=== PATIENT | male | born 1955 | race Caucasian/White ===

== ENCOUNTER 2018-07-02 10:08 | Emergency (ER) | payer OTHER ==
--- NOTE | 2018-07-02 11:31 | RADIOLOGY REPORT (SQ) ---
EXAM DESCRIPTION: ACUTE ABDOMEN SERIES COMPLETED DATE/TIME: 07/02/2018 11:00 am REASON FOR STUDY: Abdominal pain and inguinal hernia COMPARISON: None. NUMBER OF VIEWS: Three views. TECHNIQUE: Frontal chest, supine abdomen and upright/decubitus abdomen radiographic images acquired. LIMITATIONS: None. FINDINGS: CHEST: Lungs clear of infiltrates. FREE AIR: None. No abnormal gas collections. BOWEL GAS PATTERN: There are couple prominent air filled bowel loops in the left upper quadrant which appear to be colonic. Otherwise a nonspecific intestinal bowel gas pattern is seen. A moderate yasmin unt of fecal material is identified in the right colon and transverse colon to the level of the splen ic flexure. CALCIFICATIONS: No suspicious calcifications. HARDWARE: None in the abdomen. SOFT TISSUES: No gross mass or suggestion of organomegaly. BONES: A mi lumbar scoliosis convex to the right is identified with associated degenerative changes. OTHER: No other significant finding. IMPRESSION: NO RADIOGRAPHIC EVIDENCE FOR ACUTE ABDOMINAL DISEASE. TECHNICAL DOCUMENTATION: JOB ID: [id number] zerved- All Rights Reserved Reading location - IP/workstation name: [email or web address]
[2018-07-02 11:43] LABS: ABSOLUTE BASOPHILS # (AUTO) 0.1 10^3/uL (0.0-0.2); ABSOLUTE EOSINOPHILS # (AUTO) 0.1 10^3/uL (0.0-0.6); ABSOLUTE LYMPHOCYTES (AUTO) 1.1 10^3/uL (0.5-4.7); ABSOLUTE MONOCYTES (AUTO) 0.4 10^3/uL (0.1-1.4); ABSOLUTE NEUT (AUTO) 4.1 10^3/uL (1.7-8.2); BASOPHILS % (AUTO) 1.3 % (0-2); EOSINOPHILS % (AUTO) 1.2 % (0-6); HEMATOCRIT 44.8 % (37.9-51.0); HEMOGLOBIN 15.6 g/dL (13.5-17.0); LYMPHOCYTES % (AUTO) 18.9 % (13-45); MEAN CORPUSCULAR HEMOGLOBIN 30.3 pg (27.0-33.4); MEAN CORPUSCULAR HGB CONC 34.8 g/dL (32.0-36.0); MEAN CORPUSCULAR VOLUME 87 fl (80-97); MONOCYTES % (AUTO) 7.2 % (3-13); PLATELET COUNT 235 10^3/uL (150-450); RED BLOOD COUNT 5.15 10^6/uL (4.35-5.55); RED CELL DISTRIBUTION WIDTH 13.6 % (11.5-14.0); SEGMENTED NEUTROPHILS % (AUTO) 71.4 % (42-78); TOTAL CELLS COUNTED % (AUTO) 100 %; WHITE BLOOD COUNT 5.7 10^3/uL (4.0-10.5)
[2018-07-02 11:51] LABS: APPEARANCE,URINE SLIGHTLY-CLOUDY; BILIRUBIN,URINE NEGATIVE (NEGATIVE); COLOR,URINE YELLOW; GLUCOSE, URINE 50 mg/dL (NEGATIVE); KETONES,URINE TRACE mg/dL (NEGATIVE); LEUKOCYTE ESTERASE,URINE NEGATIVE (NEGATIVE); NITRITE,URINE NEGATIVE (NEGATIVE); PROTEIN,URINE 100 mg/dL (NEGATIVE); URINE SPECIFIC GRAVITY 1.017
[2018-07-02 12:04] LABS: ALANINE AMINOTRANSFERASE 46 U/L (21-72); ALBUMIN 4.1 g/dL (3.5-5.0); ALKALINE PHOSPHATASE 89 U/L (38-126); ANION GAP 11 (5-19); ASPARTATE AMINO TRANSFERASE 30 U/L (17-59); BILIRUBIN,DIRECT 0.3 mg/dL (0.0-0.4); BILIRUBIN,TOTAL 0.8 mg/dL (0.2-1.3); BLOOD UREA NITROGEN 31 mg/dL (7-20); CALCIUM 9.5 mg/dL (8.4-10.2); CARBON DIOXIDE 28 mmol/L (22-30); CHLORIDE 103 mmol/L (98-107); GLUCOSE 248 mg/dL (75-110); POTASSIUM 4.7 mmol/L (3.6-5.0); SODIUM 141.8 mmol/L (137-145); TOTAL PROTEIN 6.9 g/dL (6.3-8.2)
--- NOTE | 2018-07-02 12:45 | ER Document Report ---
ED GI/ - General TRAVEL OUTSIDE OF THE [place] IN LAST 30 DAYS: No <OLIVER PINEDA - Last Filed: 07/02/18 12:42> <DEJALILIANA - Last Filed: 07/02/18 13:17> - General Chief Complaint: Groin Pain Stated Complaint: GROIN PAIN Time Seen by Provider: 07/02/18 10:28 Notes: Chief complaint: abdominal pain: Ongoing pain History of complain:( obtained from----patient) 62 years old male presents today with right groin, inguinal hernia which is giving rise to on and off pain. Not associated with any nausea vomiting fever chills or other constitutional symptoms. He has been having this for a while. Denies any dysuria frequency urgency. Onset: As above Duration: Gradual Severity: Mild to moderate Quality: Sharp Context: Hernia Exacerbating factor and relieving factors: Lifting REVIEW OF SYSTEMS: CONSTITUTIONAL : Denies fever, chills, or sweats. Denies recent illness. EENT: Denies eye, ear, throat, or mouth pain or symptoms. Denies nasal or sinus congestion or discharge. Denies throat, tongue, or mouth swelling or difficulty swallowing. CARDIOVASCULAR: Denies chest pain. Denies palpitations or racing or irregular heart beat. Denies ankle edema. RESPIRATORY: Denies cough, cold, or chest congestion. Denies shortness of breath, difficulty breathing, or wheezing. GASTROINTESTINAL: Denies distention. Denies nausea, vomiting, or diarrhea. Denies blood in vomitus, stools, or per rectum. Denies black, tarry stools. Denies constipation. GENITOURINARY: Denies difficulty urinating, painful urination, burning, frequency, blood in urine, or discharge. FEMALE GENITOURINARY: Denies vaginal bleeding, heavy or abnormal periods, irregular periods. Denies vaginal discharge or odor. MUSCULOSKELETAL: Denies back or neck pain or stiffness. Denies joint pain or swelling. SKIN: Denies rash, lesions or sores. HEMATOLOGIC : Denies easy bruising or bleeding. LYMPHATIC: Denies swollen, enlarged glands. NEUROLOGICAL: Denies confusion or altered mental status. Denies passing out or loss of consciousness. Denies dizziness or lightheadedness. Denies headache. Denies weakness or paralysis or loss of use of either side. Denies problems with gait or speech. Denies sensory loss, numbness, or tingling. Denies seizures. PSYCHIATRIC: Denies anxiety or stress. Denies depression, suicidal ideation, or homicidal ideation. ALL OTHER SYSTEMS REVIEWED AND NEGATIVE. PHYSICAL EXAMINATION: GENERAL: Well-appearing, well-nourished and in no acute distress. HEAD: Atraumatic, normocephalic. EYES: Pupils equal round and reactive to light, extraocular movements intact, conjunctiva are normal. ENT: Nares patent, oropharynx clear without exudates. Moist mucous membranes. NECK: Normal range of motion, supple without lymphadenopathy LUNGS: Breath sounds clear to auscultation bilaterally and equal. No wheezes rales or rhonchi. HEART: Regular rate and rhythm without murmurs ABDOMEN: Soft, nontender, nondistended abdomen. No guarding, no rebound. No masses appreciated. Right inguinal canal has a swelling which is not erythematous warm or tender to touch. Able to reduce the hernia. Female : deferred Musculoskeletal: Normal range of motion, no pitting or edema. No cyanosis. NEUROLOGICAL: Cranial nerves grossly intact. Normal speech, normal gait. Normal sensory, motor exams PSYCH: Normal mood, normal affect. SKIN: Warm, Dry, normal turgor, no rashes or lesions noted. Dictation was performed using [employer] voice recognition software (OLIVER PINEDA) - [facility] Notes: 07/02/18 12:43 Dictated (OLIVER PINEDA) - Related Data Allergies/Adverse Reactions: No Known Allergies Allergy (Verified 07/02/18 10:10) Past Medical History - Social History Smoking Status: Former Smoker Frequency of alcohol use: Rare Drug Abuse: Bath salts Lives with: Family Family History: Reviewed & Not Pertinent, Other - Valvular disease Patient has suicidal ideation: No Patient has homicidal ideation: No - Past Medical History Cardiac Medical History: Reports: Hx Atrial Fibrillation, Hx Heart Attack, Hx Hypercholesterolemia, Hx Hypertension Denies: Hx Congestive Heart Failure Endocrine Medical History: Reports: Hx Diabetes Mellitus Type 1 - insulin drip, Hx Diabetes Mellitus Type 2 Renal/ Medical History: Denies: Hx Peritoneal Dialysis Musculoskeletal Medical History: Reports Hx Arthritis Psychiatric Medical History: Denies: Hx Depression Past Surgical History: Reports: Hx Abdominal Surgery - hernia repair, Hx Cardiac Catheterization, Hx Herniorrhaphy - Immunizations Hx Diphtheria, Pertussis, Tetanus Vaccination: Yes <OLIVER PINEDA - Last Filed: 07/02/18 12:42> Review of Systems <DIONNA PINEDAJEY - Last Filed: 07/02/18 12:42> <LILIANA SHORT - Last Filed: 07/02/18 13:17> - Review of Systems Notes: Dictated (AMEYA PINEDAJACOBY) Physical Exam <AMEYA PINEDAJACOBY - Last Filed: 07/02/18 12:42> <LILIANA SHORT - Last Filed: 07/02/18 13:17> - Vital signs Vitals: Temp Pulse Resp BP Pulse Ox 98.3 F 70 16 164/85 H 97 07/02/18 10:14 07/02/18 10:14 07/02/18 10:14 07/02/18 10:14 07/02/18 10:14 - Notes Notes: Dictated (AMEYA PINEDAJACOBY) Course - Laboratory Result Diagrams: 07/02/18 11:33 07/02/18 11:33 - Diagnostic Test Radiology reviewed: Reports reviewed - Abdominal series reported by radiologist as unremarkable. No obstructions or air-fluid levels noted <MAURYDanayAMEYAJACOBY - Last Filed: 07/02/18 12:42> - Laboratory Result Diagrams: 07/02/18 11:33 07/02/18 11:33 <LILIANA SHORT - Last Filed: 07/02/18 13:17> - Vital Signs Vital signs: Temp Pulse Resp BP Pulse Ox 97.3 F 71 18 164/88 H 99 07/02/18 13:11 07/02/18 13:11 07/02/18 13:11 07/02/18 13:11 07/02/18 13:11 - Laboratory Laboratory results interpreted by me: 07/02/18 07/02/18 11:33 11:33 BUN 31 H Creatinine 1.78 H Est GFR ( Amer) 47 L Est GFR (Non-Af Amer) 39 L Glucose 248 H Urine Protein 100 H Urine Glucose (UA) 50 H Urine Ketones TRACE H Urine Urobilinogen 2.0 H Discharge <ALEKSEY PINEDACECILIAJACOBY - Last Filed: 07/02/18 12:42> <LILIANA SHORT - Last Filed: 07/02/18 13:17> - Discharge Clinical Impression: Reducible right inguinal hernia Condition: Fair Disposition: HOME, SELF-CARE Instructions: Hernia ([facility]) Additional Instructions: Hernia You have a hernia. A hernia forms at a weak spot in the abdominal wall. Bowel slips out of the abdominal cavity into the weak spot. Hernias tend to occur in the groin (especially in males), the fold of the thigh, the naval, or at a surgical scar. Surgical repair of the defect is usually necessary. The problem tends to get worse. It's important that you follow up as recommended. For now, you should avoid straining, heavy lifting, and vigorous exercise. Complications occur if the hernia becomes tightly stuck. You should come back immediately if the area becomes increasingly painful, swollen, or discolored, or if you develop abdominal pain and vomiting. Referrals: TOMAS LEON MD [Primary Care Provider] - Follow up as needed [facility] [Provider Group] - Follow up as needed
[2018-07-02 13:11] VITALS: BP 164/88
== END 2018-07-02 13:12 | disposition home or self-care (01) ==
LOC: ER 10:08
DX: K40.90 Unilateral inguinal hernia, without obstruction or gangrene, not specified as recurrent (principal); I10 Essential (primary) hypertension; E11.9 Type 2 diabetes mellitus without complications; Z87.891 Personal history of nicotine dependence
CPT/HCPCS: 36415; 74022; 80053; 81001; 83690; 85025; 99283

== ENCOUNTER 2018-09-21 08:44 | Day surgery (SDC) | payer OTHER ==
[2018-09-14 09:30] LABS: HEMATOCRIT 46.1 % (37.9-51.0); HEMOGLOBIN 15.8 g/dL (13.5-17.0); MEAN CORPUSCULAR HEMOGLOBIN 29.2 pg (27.0-33.4); MEAN CORPUSCULAR HGB CONC 34.2 g/dL (32.0-36.0); MEAN CORPUSCULAR VOLUME 86 fl (80-97); PLATELET COUNT 292 10^3/uL (150-450); RED BLOOD COUNT 5.39 10^6/uL (4.35-5.55); RED CELL DISTRIBUTION WIDTH 14.4 % (11.5-14.0); WHITE BLOOD COUNT 7.1 10^3/uL (4.0-10.5)
[2018-09-14 09:57] LABS: ANION GAP 10 (5-19); BLOOD UREA NITROGEN 42 mg/dL (7-20); CALCIUM 9.8 mg/dL (8.4-10.2); CARBON DIOXIDE 23 mmol/L (22-30); CHLORIDE 110 mmol/L (98-107); GLUCOSE 133 mg/dL (75-110); POTASSIUM 4.7 mmol/L (3.6-5.0); SODIUM 143.2 mmol/L (137-145)
--- NOTE | 2018-09-14 12:18 | EKG REPORT ---
SEVERITY:- ABNORMAL ECG - SINUS RHYTHM FIRST DEGREE AV BLOCK NONSPECIFIC T ABNORMALITIES, LATERAL LEADS : Confirmed by: Jef Wallace MD 14-Sep-2018 12:17:11
[~2018-09-21 08:44] MED LIST: BUPIVACAINE HCL 0.25 % INJ/PF (2.5 MG/1 ML) 30 ML VIAL ONE; CEFAZOLIN SODIUM 2 GM in DEXTROSE 5%-WATER 100 ML IV PRN; IBUPROFEN 800 MG in NORMAL SALINE 250 ML IV PRN; LIDOCAINE 0.5% INJ-PF (5 MG/ML) 50 ML SDV SUBCUT PRN; NORMAL SALINE 1000 ML (RENAL PATIENTS) IV PRN
[2018-09-21] MEDS ORDERED: SUCCINYLCHOLINE CHLORIDE INJ 200 MG/10 ML VIAL ONE (09:02)
[2018-09-21] MEDS ORDERED: ROCURONIUM BROMIDE INJ 50 MG/5 ML VIAL IV ONE (09:02)
[2018-09-21] MEDS ORDERED: CEFAZOLIN 2 GM/D5W RTU 2 GM/50 ML RTUPB IV ONE (09:48)
[2018-09-21 09:55] LABS: PROTHROMBIN TIME 13.7 SEC (11.4-15.4)
[2018-09-21 09:56] LABS: PARTIAL THROMBOPLASTIN TIME 36.5 SEC (23.5-35.8)
[2018-09-21] MEDS ORDERED: ALBUTEROL SULFATE 0.083% NEB 2.5 MG/3 ML AMPUL NEB ONE (10:01)
[2018-09-21 10:09] LABS: POTASSIUM 4.1 mmol/L (3.6-5.0)
[2018-09-21] MEDS ORDERED: LIDOCAINE 2% INJ-PF (20 MG/ML) 10 ML AMPUL ONE (10:12)
[2018-09-21] MEDS ORDERED: PROMETHAZINE HCL INJ 25 MG/1 ML VIAL ONE (10:12)
[2018-09-21] MEDS ORDERED: FENTANYL CITRATE INJ/PF 250 MCG/5 ML AMPULE ONE (10:12)
[2018-09-21] MEDS ORDERED: DEXAMETHASONE SOD PHOSPHATE INJ 4 MG/1 ML VIAL ONE (10:13)
[2018-09-21] MEDS ORDERED: PROPOFOL INJ 200 MG/20 ML VIAL IV ONE (10:13)
[2018-09-21] MEDS ORDERED: MIDAZOLAM 2 MG/2 ML INJ ONE (10:13)
[2018-09-21] MEDS ORDERED: ONDANSETRON HCL INJ/PF 4 MG/2 ML SDV ONE (10:13)
[2018-09-21] MEDS ORDERED: ACETAMINOPHEN 1,000 MG/100 ML RTUPB IV ONE (10:14)
[2018-09-21] MEDS ORDERED: HYDROMORPHONE HCL INJ/PF 2 MG/ML AMPULE ONE (10:15)
[2018-09-21] MEDS ORDERED: DIPHENHYDRAMINE HCL 50 MG/ML VIAL IV PRN (11:06)
[2018-09-21] MEDS ORDERED: MORPHINE SULFATE 10 MG/ML INJ IV PRN (11:06)
[2018-09-21] MEDS ORDERED: FENTANYL CITRATE INJ/PF 100 MCG/2 ML AMPUL IV PRN ×3 (11:06)
[2018-09-21] MEDS ORDERED: PROMETHAZINE HCL INJ 25 MG/1 ML VIAL IV PRN ×2 (11:06)
[2018-09-21] MEDS ORDERED: MEPERIDINE HCL/PF INJ 25 MG/1 ML DISP.SYRIN IV PRN (11:06)
[2018-09-21] MEDS ORDERED: HYDROCODONE/ACETAMINOPHEN 10-325 MG TABLET ONE (14:43)
[2018-09-21 15:46] VITALS: BP 136/70
--- NOTE | 2018-09-24 10:16 | Discharge Summary ---
Discharge Summary (SDC) - Discharge Final Diagnosis: Bilateral indirect inguinal hernias Date of Surgery: 09/21/18 Discharge Date: 09/21/18 Forms: ASU Anesthesia D/C Instruction, Discharge POC-Surgical Service Treatment or Instructions: Return to physician as directed. Referrals: ALAYNA AGUIRRE MD [ACTIVE STAFF] - 10/01/18 9:15 am Discharge Diet: As Tolerated Respiratory Treatments at Home: Deep Breathing/Coughing, Incentive Spirometer Discharge Activity: No Lifting Over 10 Pounds, No Lifting/Push/Pulling Home Care Assistance: None Needed Report the Following to Your Physician Immediately: Shortness of Breath, Nausea, Vomiting, Increase in Pain, Fever over 101 Degrees, Unusual Bleeding, Redness, Swelling, Warmth
--- NOTE | 2018-09-24 10:24 | Operative Report ---
Nonrecallable Operative Report DATE OF SURGERY: 09/21/18 PREOPERATIVE DIAGNOSIS: Bilateral inguinal hernias POSTOPERATIVE DIAGNOSIS: Bilateral indirect inguinal hernias OPERATION: Robot-assisted laparoscopic bilateral indirect inguinal hernia repair with mesh SURGEON: ALAYNA AGUIRRE ANESTHESIA: GA TISSUE REMOVED OR ALTERED: None COMPLICATIONS: None apparent ESTIMATED BLOOD LOSS: Minimal PROCEDURE: Drains/implants: Large right and left 3 DMax inguinal hernia mesh. Procedure in detail: After informed consent was obtained, the patient was brought into the operating room and laid in the supine position. The area of the abdomen was prepped and draped in a normal sterile fashion. A supraumbilical incision was created with a 15 blade scalpel. This was deepened through the use of sharp and blunt dissection. The linea alba fascia was incised sharply, the abdomen was entered sharply. The balloon trocar was i nserted, and pneumoperitoneum was achieved. 2 robotic 8 mm trochars were placed in the right and left lateral abdominal wall under direct laparoscopic visualization. The robot was then brought over the patient and docked appropriately. Robotic instruments were inserted into the robotic arms, and I assumed my position at the surgeon's console. Attention was turned to the right groin. There was a large indirect inguinal hernia present. The peritoneum was scored 2-3 cm superior to the defect. Dissection was then carried out in the preperitoneal space using sharp dissection, blunt dissection, and electrocautery. The space was opened, and the hernia sac was reduced back into the abdominal cavity. This was done with great care, to avoid injury to the spermatic vessels. Once the hernia sac was freed, it was everted. The large 3 DMax inguinal hernia mesh was then placed into the abdominal cavity. It was situated in the preperitoneal space. It was sutured medially and superiorly using 2-0 Vicryl suture in simple interrupted fashion. Once the mesh was found to lie in good place, the peritoneum was closed using 2- 0 V lock suture in simple running fashion. The hernia sac was incorporated into the closure. Attention was then turned to the left groin. An indirect inguinal hernia was identified on the left side. A preperitoneal dissection was then undertaken 2-3 cm superior to the defect. The plane was developed using sharp dissection, blunt dissection, and electrocautery. The hernia sac was freed from the cord structures very carefully. This was done to avoid injury to the cord structures. Once the space was opened, a left-sided large 3 DMax inguinal hernia mesh was placed into the abdominal cavity. It was situated in the preperitoneal space, over the defect. The mesh was sutured to the abdominal wall using 2-0 Vicryl suture medially and superiorly. Once this was completed, the mesh was found to lie in good place. The peritoneum was then closed using 2-0 V lock suture in simple running fashion. Once the peritoneum was closed, bilateral repairs were inspected. These were found to be in good order. After this was confirmed, the robot was undocked and I scrubbed back into the case. The trochars were then removed, pneumoperitoneum was relieved, and attention was turned to closure. The supraumbilical fascia was closed using 0 Vicryl suture in [id number] fashion. The overlying skin was closed using 4-0 Vicryl Rapide suture in subcuticular fashion. Dressings were placed, and the procedure was concluded. All sponge, instrument, and needle counts were correct x2. Condition: Stable.
== END 2018-09-21 15:55 | disposition home or self-care (01) ==
LOC: OROUT 08:44
PROVIDERS: ATTEND Surgery
DX: K40.21 Bilateral inguinal hernia, without obstruction or gangrene, recurrent (principal); I10 Essential (primary) hypertension; I48.92 Unspecified atrial flutter; Z86.73 Personal history of transient ischemic attack (TIA), and cerebral infarction without residual deficits; E78.5 Hyperlipidemia, unspecified; Z87.891 Personal history of nicotine dependence; M17.0 Bilateral primary osteoarthritis of knee; G47.30 Sleep apnea, unspecified; Z96.41 Presence of insulin pump (external) (internal); G40.909 Epilepsy, unspecified, not intractable, without status epilepticus; Z79.899 Other long term (current) drug therapy; Z79.4 Long term (current) use of insulin; Z79.01 Long term (current) use of anticoagulants; Z79.02 Long term (current) use of antithrombotics/antiplatelets
CPT/HCPCS: 49651; S2900; 36415; 80048; 82947; 82962; 840; 84132; 85027; 85610; 85730; 86850; 86900; 86901; 93005; 93010; C1781; J0131; J0330; J0690; J1100; J1170; J1741; J2250; J2405; J2550; J2704; J3010; J3490; J7050

== ENCOUNTER 2019-10-15 10:13 | Day surgery (SDC) | payer OTHER ==
[2019-10-15] MEDS ORDERED: METHYLPREDNISOLONE ACETATE INJ 40 MG/1 ML ML ONE (11:57)
[2019-10-15] MEDS ORDERED: LIDOCAINE 2% INJ (20 MG/ML) 20 ML MDV ONE (11:57)
[2019-10-15] MEDS ORDERED: BUPIVACAINE HCL 0.5 % INJ/PF 30 ML SDV ONE (11:57)
[2019-10-15] MEDS ORDERED: MIDAZOLAM 2 MG/2 ML INJ ONE (11:59)
[2019-10-15] MEDS ORDERED: FENTANYL CITRATE INJ/PF 100 MCG/2 ML AMPUL ONE (12:00)
[2019-10-15] MEDS ORDERED: KETOROLAC TROMETHAMINE INJ/PF 30 MG/1 ML SDV IM PRN (12:10)
--- NOTE | 2019-10-15 12:58 | Operative Report ---
KNEE RADIOFREQUENCY: RIGHT KNEE PROCEDURE: 1. Superolateral genicular branch from the vastus lateralis 2. Superomedial genicular branch from the vastus medialis 3. Inferomedial genicular branch from the saphenous nerve 4. Medial retinacular branch from the vastus intermedius DATE OF PROCEDURE: 10/15/2019 ANESTHESIA: Local with IV sedation including midazolam and fentanyl COMPLICATIONS: None PROCEDURE IN DETAIL: Hx/PE/meds/allergies/applicable labs reviewed. No changes and no contraindications were found. Full description of the procedure was provided including benefits as well as possible complications including transient increased pain, stomach irritation, mood alteration, transient weakness or parasthesias as well as more serious nerve injury, bleeding, infection or allergic reaction. Informed consent was obtained and documented. The patient was brought to the procedure room and placed on the exam table in a comfortable supine position. The place for needle placement was obtained by manual palpation with radiographic confirmation. The sterile field was prepared by chloroprep and sterile drapes. Local anesthesia superficial and deep was provided by local infiltration of 1% lidocaine. A 17g 50mm radiofrequency introducer needle with a 4 mm active tip was placed overlying the RIGHT knee joint and using fluoroscopic guidance the needle was advanced to a bony endpoint on the superiolateral portion of the femoral condyle of the Right/left knee. A second needle was advanced to a bony endpoint on the superiomedial portion of the femoral condyle. A third needle was then placed over the inferiomedial portion of the tibial condyle until a bony endpoint was met. A fourth needle was placed midline of the femur approximately 2cm superior to the upper border of the patella. Attempted aspiration yielded no blood. Lateral x-ray views showed all the needles at 50% depth of the femur and tibia. Motor stimulation was tested at 2.0 volts with no leg movement. Images were saved in AP and lateral. A mixture consisting of 2% lidocaine was slowly injected. Then a radiofrequency ablation of each of the geniculate nerves were done at 80 degrees Celsius for 2 minutes and 30 seconds each. Subsequently each site was infiltrated with 1 mL of a solution of 0.25% bupivacaine with 30 mg of ketorolac . Then, the needles were withdrawn and bandages were placed. The patient tolerated the procedure well. After observation the patient was discharged with instructions and follow up. They were also provided contact information to call regarding any concerning symptoms or questions. IMPRESSION: 1. Successful geniculate knee radiofrequency ablation was performed. 2. RTC in 3 week(s).
[2019-10-15 14:46] VITALS: BP 202/107
== END 2019-10-15 14:25 | disposition home or self-care (01) ==
LOC: RAD 10:13
PROVIDERS: ATTEND Pain Medicine Interventional Pain Medicine
DX: M25.561 Pain in right knee (principal); I10 Essential (primary) hypertension
CPT/HCPCS: 82962; 64640 ×3; 99152; 99153; J2250; J3490 ×2; J3010; J1030; J1885

== ENCOUNTER 2019-10-15 14:38 | Emergency (ER) | payer OTHER ==
--- NOTE | 2019-10-15 15:15 | ER Document Report ---
ED Medical Screen (RME) - General Chief Complaint: High Blood Pressure Stated Complaint: BLOOD PRESSURE/SUGAR ISSUES Time Seen by Provider: 10/15/19 15:04 Primary Care Provider: [facility] [Primary [facility] Provider] - Follow up as needed Mode of Arrival: Wheelchair Information source: Patient Notes: Patient was having an lesion procedure performed on his right knee for pain control per Dr. Phan. During the procedure patient's blood pressure was elevated and continue to rise even after the procedure was performed. Blood pressure reading was 202/107 at one point. Patient states that he was given medication to help sedate him so he thought that his blood pressure should have been okay. Patient denies any significant pain. Patient denies any lightheadedness, chest pain or shortness of breath. Patient does state that he was taken off of his Xarelto over the past 3 days and off of his Plavix for the past 7 days prior to having the procedure performed. Patient blood pressure improved as compared to readings that were done at the outpatient surgical facility. Patient was advised to come here for further evaluation per Dr Phan. hx: A.flutter, CVA, hypertension, diabetes Name TRAVEL OUTSIDE OF THE [place] IN LAST 30 DAYS: No - Related Data Allergies/Adverse Reactions: No Known Allergies Allergy (Verified 10/15/19 15:04) Home Medications: cva. htn. afib Past Medical History - Social History Chew tobacco use (# tins/day): No Frequency of alcohol use: None Drug Abuse: None - Past Medical History Cardiac Medical History: Reports: Hx Atrial Fibrillation, Hx Hypercholesterolemia, Hx Hypertension Denies: Hx Congestive Heart Failure, Hx Heart Attack Pulmonary Medical History: Denies: Hx Asthma, Hx Bronchitis, Hx COPD, Hx Pneumonia Neurological Medical History: Denies: Hx Seizures. Comment Only: Hx Cerebrovascular Accident - 11 YEARS AGO Endocrine Medical History: Reports: Hx Diabetes Mellitus Type 1 - insulin drip, Hx Diabetes Mellitus Type 2 Renal/ Medical History: Denies: Hx Peritoneal Dialysis Musculoskeltal Medical History: Reports Hx Arthritis Psychiatric Medical History: Denies: Hx Depression Past Surgical History: Reports: Hx Abdominal Surgery - hernia repair, Hx Cardiac Catheterization, Hx Herniorrhaphy - Immunizations Hx Diphtheria, Pertussis, Tetanus Vaccination: Yes Physical Exam - Vital signs Vitals: Temp Pulse Resp BP Pulse Ox 97.6 F 60 16 167/88 H 97 10/15/19 14:44 10/15/19 14:44 10/15/19 14:44 10/15/19 14:44 10/15/19 14:44 - General General appearance: Appears well, Alert In distress: None - Cardiovascular Rhythm: Regular Heart sounds: S1 appreciated, S2 appreciated Course - Vital Signs Vital signs: Temp Pulse Resp BP Pulse Ox 97.6 F 60 16 167/88 H 97 10/15/19 14:44 10/15/19 14:44 10/15/19 14:44 10/15/19 14:44 10/15/19 14:44 Doctor's Discharge - Discharge Referrals: [facility] [Primary Care Provider] - Follow up as needed
[2019-10-15 16:42] LABS: ABSOLUTE BASOPHILS # (AUTO) 0.1 10^3/uL (0.0-0.2); ABSOLUTE EOSINOPHILS # (AUTO) 0.2 10^3/uL (0.0-0.6); ABSOLUTE LYMPHOCYTES (AUTO) 1.6 10^3/uL (0.5-4.7); ABSOLUTE MONOCYTES (AUTO) 0.4 10^3/uL (0.1-1.4); ABSOLUTE NEUT (AUTO) 3.4 10^3/uL (1.7-8.2); EOSINOPHILS % (AUTO) 2.9 % (0-6); HEMATOCRIT 46.6 % (37.9-51.0); HEMOGLOBIN 16.2 g/dL (13.5-17.0); LYMPHOCYTES % (AUTO) 27.9 % (13-45); MEAN CORPUSCULAR HGB CONC 34.8 g/dL (32.0-36.0); MEAN CORPUSCULAR VOLUME 83 fl (80-97); MONOCYTES % (AUTO) 7.5 % (3-13); PLATELET COUNT 260 10^3/uL (150-450); RED CELL DISTRIBUTION WIDTH 14.8 % (11.5-14.0); SEGMENTED NEUTROPHILS % (AUTO) 60.7 % (42-78); TOTAL CELLS COUNTED % (AUTO) 100 %; WHITE BLOOD COUNT 5.6 10^3/uL (4.0-10.5)
[2019-10-15 16:59] LABS: ANION GAP 7 (5-19); BLOOD UREA NITROGEN 23 mg/dL (7-20); CALCIUM 9.1 mg/dL (8.4-10.2); CARBON DIOXIDE 27 mmol/L (22-30); CHLORIDE 104 mmol/L (98-107); GLUCOSE 184 mg/dL (75-110); POTASSIUM 3.9 mmol/L (3.6-5.0)
--- NOTE | 2019-10-15 17:28 | EKG REPORT ---
SEVERITY:- ABNORMAL ECG - SINUS RHYTHM FIRST DEGREE AV BLOCK PROBABLE LEFT ATRIAL ABNORMALITY NONSPECIFIC T ABNORMALITIES, LATERAL LEADS : Confirmed by: Jef Wallace MD 15-Oct-2019 17:28:09
[2019-10-15] MEDS ORDERED: LOSARTAN POTASSIUM 25 MG TABLET PO ONE (20:45)
[2019-10-15] MEDS ORDERED: CLONIDINE HCL 0.2 MG TABLET PO ONE (20:45)
--- NOTE | 2019-10-15 20:50 | ER Document Report ---
ED General - General Chief Complaint: High Blood Pressure Stated Complaint: BLOOD PRESSURE/SUGAR ISSUES Time Seen by Provider: 10/15/19 15:04 [facility] [[facility] - Follow up as needed Mode of Arrival: Wheelchair TRAVEL OUTSIDE OF THE [place] IN LAST 30 DAYS: No - HPI Exacerbated by: Other - pain, stress Relieved by: Denies Similar symptoms previously: Yes - patient has had high blood pressure for several months now Recently seen / treated by doctor: Yes - patient had a nerve ablation on his right knee today Notes: 63 year old male with a history of AFib, HTN, HLD, DM here in the ER for high blood pressure. The patient had an outpatient right knee nerve ablation earlier in the day and he was noted to have a high blood pressure at that time. The patient has no active symptoms of high blood pressure such has a headache, dizziness, blurry vision, chest pain. The patient tells me he has been taking his Diltiazem and Losartan as prescribed but his blood pressure have been around 180/100 for several months now. The patient is followed at the [facility]. The patient has had off and on headaches and blurry vision over the last month but he has never checked his blood pressure during these events. - Related Data Allergies/Adverse Reactions: No Known Allergies Allergy (Verified 10/15/19 15:04) Home Medications: cva. htn. afib Past Medical History - General Information source: Patient - Social History Smoking Status: Former Smoker Chew tobacco use (# tins/day): No Frequency of alcohol use: None Drug Abuse: None Family History: Reviewed & Not Pertinent, Other - Valvular disease Patient has suicidal ideation: No Patient has homicidal ideation: No - Past Medical History Cardiac Medical History: Reports: Hx Atrial Fibrillation, Hx Hypercholesterolemia, Hx Hypertension Denies: Hx Congestive Heart Failure, Hx Heart Attack Pulmonary Medical History: Denies: Hx Asthma, Hx Bronchitis, Hx COPD, Hx Pneumonia Neurological Medical History: Denies: Hx Seizures. Comment Only: Hx Cerebrovascular Accident - 11 YEARS AGO Endocrine Medical History: Reports: Hx Diabetes Mellitus Type 1 - insulin drip, Hx Diabetes Mellitus Type 2 Renal/ Medical History: Denies: Hx Peritoneal Dialysis Musculoskeletal Medical History: Reports Hx Arthritis Psychiatric Medical History: Denies: Hx Depression Past Surgical History: Reports: Hx Abdominal Surgery - hernia repair, Hx Cardiac Catheterization, Hx Herniorrhaphy - Immunizations Hx Diphtheria, Pertussis, Tetanus Vaccination: Yes Review of Systems - Review of Systems Constitutional: No symptoms reported EENT: No symptoms reported Cardiovascular: Other - high blood pressure Respiratory: No symptoms reported Gastrointestinal: No symptoms reported Genitourinary: No symptoms reported Male Genitourinary: No symptoms reported Musculoskeletal: No symptoms reported Skin: No symptoms reported Hematologic/Lymphatic: No symptoms reported Neurological/Psychological: No symptoms reported -: Yes All other systems reviewed and negative Physical Exam - Vital signs Vitals: Temp Pulse Resp BP Pulse Ox 97.6 F 60 16 167/88 H 97 10/15/19 14:44 10/15/19 14:44 10/15/19 14:44 10/15/19 14:44 10/15/19 14:44 - Notes Notes: GENERAL: Well-appearing, well-nourished and in no acute distress. HEAD: Atraumatic, normocephalic. EYES: Pupils equal round and reactive to light, extraocular movements intact, sclera anicteric, conjunctiva are normal. ENT: TMs normal, nares patent, oropharynx clear without exudates. Moist mucous membranes. NECK: Normal range of motion, supple without lymphadenopathy or JVD. LUNGS: Breath sounds clear to auscultation bilaterally and equal. No wheezes rales or rhonchi. HEART: Regular rate and rhythm without murmurs, rubs or gallops. ABDOMEN: Soft, nontender, normoactive bowel sounds. No guarding, no rebound. No masses appreciated. EXTREMITIES: Normal range of motion, no pitting or edema. No clubbing or cyanosis. NEUROLOGICAL: Cranial nerves II through XII grossly intact. Normal speech, normal gait. PSYCH: Normal mood, normal affect. SKIN: Warm, Dry, normal turgor, no rashes or lesions noted. Course - Re-evaluation Re-evalutation: 10/15/19 21:02 The patient is here in the ER for asymptomatic high blood pressure. The patient is maintained on Diltiazem and Losartan. He dose not know his doses off the top of his head but in looking back through records here he seems to be on 120mg Di ltiazem BID and Losartan 25mg Daily. Since the patient breaks his Losratan Tab in half I told him just to start taking the whole tablet daily which would double whatever dose he is on and not go over the Max daily dose for that medication. Patient told to continue keeping a blood pressure log and to [facility] blood pressure medication changes. - Vital Signs Vital signs: Temp Pulse Resp BP Pulse Ox 98.3 F 57 L 17 188/91 H 97 10/15/19 19:48 10/15/19 19:48 10/15/19 19:48 10/15/19 19:48 10/15/19 19:48 - Laboratory Result Diagrams: 10/15/19 16:09 10/15/19 16:09 Laboratory results interpreted by me: 10/15/19 10/15/19 16:09 16:09 RBC 5.60 H RDW 14.8 H BUN 23 H Creatinine 1.27 H Est GFR (MDRD) Non-Af 58 L Glucose 184 H - EKG Interpretation by Me EKG shows normal: Sinus rhythm, [place], Intervals, QRS Complexes Rate: Normal Additional EKG results interpreted by me: 10/15/19 21:02 T wave inversions in V5, V6 Discharge - Discharge Clinical Impression: Hypertension Qualifiers: Hypertension type: unspecified Qualified Code(s): I10 - Essential (primary) hypertension Condition: Stable Disposition: HOME, SELF-CARE Instructions: High Blood Pressure, Requiring Treatment ([facility]) Additional Instructions: Take your medications as prescribed except instead of taking half your Losartan dose take the full dose. Monitor your blood pressure in the days and weeks to come and keep a log of your blood pressures. Follow up with your primary care doctor and go over your blood pressure log with him/her. Referrals: [facility] [Primary [facility]] - Follow up as needed
[2019-10-15 21:18] VITALS: BP 170/101
== END 2019-10-15 21:18 | disposition home or self-care (01) ==
LOC: ER 14:38
DX: I10 Essential (primary) hypertension (principal); E11.9 Type 2 diabetes mellitus without complications; I48.91 Unspecified atrial fibrillation; Z79.899 Other long term (current) drug therapy; Z98.890 Other specified postprocedural states; Z87.891 Personal history of nicotine dependence
CPT/HCPCS: 36415; 80048; 85025; 93005; 93010; 99283

== ENCOUNTER → 2020-02-19 | Outpatient (CLI) | payer OTHER ==
[2020-02-19 12:16] LABS: ABSOLUTE BASOPHILS # (AUTO) 0.1 10^3/uL (0.0-0.2); ABSOLUTE EOSINOPHILS # (AUTO) 0.2 10^3/uL (0.0-0.6); ABSOLUTE LYMPHOCYTES (AUTO) 1.4 10^3/uL (0.5-4.7); ABSOLUTE MONOCYTES (AUTO) 0.5 10^3/uL (0.1-1.4); ABSOLUTE NEUT (AUTO) 3.7 10^3/uL (1.7-8.2); HEMATOCRIT 46.4 % (37.9-51.0); HEMOGLOBIN 15.8 g/dL (13.5-17.0); MEAN CORPUSCULAR VOLUME 85 fl (80-97); MONOCYTES % (AUTO) 8.9 % (3-13); PLATELET COUNT 235 10^3/uL (150-450); RED BLOOD COUNT 5.45 10^6/uL (4.35-5.55); SEGMENTED NEUTROPHILS % (AUTO) 63.1 % (42-78); TOTAL CELLS COUNTED % (AUTO) 100 %; WHITE BLOOD COUNT 5.8 10^3/uL (4.0-10.5)
--- NOTE | 2020-02-19 12:33 | RADIOLOGY REPORT (SQ) ---
EXAM DESCRIPTION: CHEST PA/LATERAL IMAGES COMPLETED DATE/TIME: 02/19/2020 11:42 am REASON FOR STUDY: PRE-OP COMPARISON: 07/09/2016 EXAM PARAMETERS: NUMBER OF VIEWS: two views TECHNIQUE: Digital Frontal and Lateral radiographic views of the chest acquired. RADIATION DOSE: NA LIMITATIONS: none FINDINGS: LUNGS AND PLEURA: No opacities, masses or pneumothorax. No pleural effusion. MEDIASTINUM AND HILAR STRUCTURES: No masses or contour abnormalities. HEART AND VASCULAR STRUCTURES: Heart normal size. No evidence for failure. BONES: No acute findings. HARDWARE: None in the chest. OTHER: No other significant finding. IMPRESSION: NO SIGNIFICANT RADIOGRAPHIC FINDING IN THE CHEST. TECHNICAL DOCUMENTATION: JOB ID: [id number] 2010 [employer]- All Rights Reserved Reading location - IP/workstation name: [email or web address]
[2020-02-19 12:34] LABS: ANION GAP 8 (5-19); BLOOD UREA NITROGEN 50 mg/dL (7-20); CALCIUM 9.4 mg/dL (8.4-10.2); CARBON DIOXIDE 26 mmol/L (22-30); CHLORIDE 104 mmol/L (98-107); GLUCOSE 219 mg/dL (75-110); POTASSIUM 4.4 mmol/L (3.6-5.0)
--- NOTE | 2020-02-19 13:38 | EKG REPORT ---
SEVERITY:- ABNORMAL ECG - SINUS RHYTHM FIRST DEGREE AV BLOCK PROBABLE LEFT ATRIAL ABNORMALITY BORDERLINE T WAVE ABNORMALITIES : Confirmed by: Jef Wallace MD 19-Feb-2020 13:37:33
== END ==
LOC: OD 11:05
PROVIDERS: ATTEND Orthopaedic Surgery
DX: Z01.812 Encounter for preprocedural laboratory examination (principal); Z01.810 Encounter for preprocedural cardiovascular examination; Z01.811 Encounter for preprocedural respiratory examination
CPT/HCPCS: 36415; 71046; 80048; 83036; 85025; 93005; 93010

== ENCOUNTER 2020-04-23 18:10 | Inpatient (IN) | payer OTHER ==
[2020-04-23] MEDS ORDERED: MORPHINE SULFATE 10 MG/ML INJ IV ONE ×2 (20:37→23:47)
[2020-04-23] MEDS ORDERED: RINGERS SOLUTION,LACTATED 1,000 ML IV ONE (20:37)
--- NOTE | 2020-04-23 20:39 | ER Document Report ---
ED Medical Screen (RME) - General Chief Complaint: Abdominal Pain Stated Complaint: ABDOMINAL PAIN Time Seen by Provider: 04/23/20 20:32 Primary Care Provider: COTY BECERRA MD [Primary Care Provider] - Follow up as needed Mode of Arrival: Wheelchair Information source: Patient Notes: HPI; 64-year-old male presents to the emergency room complaining of right lower quadrant pain that started last night. Complains of nausea but no vomiting. Has not taken anything for his pain. Describes it as a constant sharp aching pain. Denies fevers. Denies urinary symptoms. PE: Alert and oriented x3. Lungs: Clear to auscultation without rales, rhonchi, wheezes. Heart: Tachycardic without murmurs, rubs, gallops. Unable to do abdominal exam in triage. I have greeted and performed a rapid initial assessment of this patient. A comprehensive ED assessment and evaluation of the patient, analysis of test results and completion of the medical decision making process will be conducted by additional ED providers. I have specifically instructed the patient or family members with the patient to immediately return to any nursing staff should anything change in the patient's condition or with their chief complaint. TRAVEL OUTSIDE OF THE [place] IN LAST 30 DAYS: No - Related Data Allergies/Adverse Reactions: No Known Allergies Allergy (Verified 10/15/19 15:04) Past Medical History - Past Medical History Cardiac Medical History: Reports: Hx Atrial Fibrillation, Hx Hypercholesterolemia, Hx Hypertension Denies: Hx Congestive Heart Failure, Hx Heart Attack Pulmonary Medical History: Denies: Hx Asthma, Hx Bronchitis, Hx COPD, Hx Pneumonia Neurological Medical History: Denies: Hx Seizures. Comment Only: Hx Cerebrovascular Accident - 11 YEARS AGO Endocrine Medical History: Reports: Hx Diabetes Mellitus Type 1 - insulin drip, Hx Diabetes Mellitus Type 2 Renal/ Medical History: Denies: Hx Peritoneal Dialysis Musculoskeltal Medical History: Reports Hx Arthritis Psychiatric Medical History: Denies: Hx Depression Past Surgical History: Reports: Hx Abdominal Surgery - hernia repair, Hx Cardiac Catheterization, Hx Herniorrhaphy - Immunizations Hx Diphtheria, Pertussis, Tetanus Vaccination: Yes Physical Exam - Vital signs Vitals: Temp Pulse Resp BP Pulse Ox 98.1 F 103 H 18 116/64 100 04/23/20 18:20 04/23/20 18:20 04/23/20 18:20 04/23/20 18:20 04/23/20 18:20 Course - Vital Signs Vital signs: Temp Pulse Resp BP Pulse Ox 98.1 F 103 H 18 116/64 100 04/23/20 18:20 04/23/20 18:20 04/23/20 18:20 04/23/20 18:20 04/23/20 18:20 Doctor's Discharge - Discharge Referrals: COTY BECERRA MD [Primary Care Provider] - Follow up as needed
[2020-04-23 20:57] LABS: HEMATOCRIT 54.9 % (37.9-51.0); HEMOGLOBIN 18.3 g/dL (13.5-17.0); MEAN CORPUSCULAR HEMOGLOBIN 28.5 pg (27.0-33.4); MEAN CORPUSCULAR HGB CONC 33.3 g/dL (32.0-36.0); MEAN CORPUSCULAR VOLUME 86 fl (80-97); PLATELET COUNT 303 10^3/uL (150-450); RED BLOOD COUNT 6.41 10^6/uL (4.35-5.55); RED CELL DISTRIBUTION WIDTH 15.7 % (11.5-14.0)
[2020-04-23 21:02] LABS: ALBUMIN 4.2 g/dL (3.5-5.0); ALKALINE PHOSPHATASE 143 U/L (38-126); ANION GAP 15 (5-19); ASPARTATE AMINO TRANSFERASE 24 U/L (17-59); BILIRUBIN,DIRECT 0.2 mg/dL (0.0-0.4); BILIRUBIN,TOTAL 1.5 mg/dL (0.2-1.3); BLOOD UREA NITROGEN 27 mg/dL (7-20); CARBON DIOXIDE 21 mmol/L (22-30); CHLORIDE 100 mmol/L (98-107); GLUCOSE 230 mg/dL (75-110); POTASSIUM 3.6 mmol/L (3.6-5.0); TOTAL PROTEIN 7.3 g/dL (6.3-8.2)
[2020-04-23 21:19] LABS: ABSOLUTE LYMPHOCYTES# (MANUAL) 0.3 10^3/uL (0.5-4.7); ABSOLUTE MONOCYTES # (MANUAL) 0.6 10^3/uL (0.1-1.4); BASOPHILS % (MANUAL) 0 % (0-2); EOSINOPHILS % (MANUAL) 0 % (0-6); LYMPHOCYTES % (MANUAL) 2 % (13-45); MONOCYTES % (MANUAL) 4 % (3-13); SEGMENTED NEUTROPHILS % (MAN) 94 % (42-78); TOTAL CELLS COUNTED 100
[2020-04-23 21:20] LABS: ANISOCYTOSIS SLIGHT; PLATELET COMMENT ADEQUATE
--- NOTE | 2020-04-23 23:30 | RADIOLOGY REPORT (SQ) ---
EXAM DESCRIPTION: CT ABDOMEN PELVIS WITHOUT IV CONTRAST COMPLETED DATE/TME: 04/23/2020 21:32 CLINICAL HISTORY: Right abdominal pain. COMPARISON: None Available. TECHNIQUE: CT of the abdomen and pelvis without IV contrast. Evaluation of the solid organs and vasculature is suboptimal due to lack of IV contrast. Oral contrast administered. FINDINGS: Lung Bases: Multiple solid pulmonary nodules in the right lower lobe, the largest measuring 1.1 x 0.7 cm. Bones: Multilevel degenerative endplate spondylosis throughout the visualized spine. Punctate focal hyperdensities in the femoral heads likely represent bone islands. Abdomen: Liver: The liver has normal size and density. Gallbladder: No calcified gallstones. Spleen, Pancreas, and Adrenal Glands: The spleen, pancreas, and adrenal glands are unremarkable. Kidneys: The kidneys have normal size without evidence of hydronephrosis. No obstructing ureteral calculi. Bilateral nonobstructing nephrolithiasis. Vasculature: Aortoiliac atherosclerosis. IVC is unremarkable. Stomach: The stomach and duodenum have normal course. Other: No free intraperitoneal air. No free fluid or lymphadenopathy. Pelvis: Bladder: Urinary bladder is unremarkable. Bowel: No dilated loops of large or small bowel. Appendix: Dilation of the appendix measuring 0.9 cm. Appendicolith present. Periappendiceal inflammatory change. No well-circumscribed periappendiceal fluid collection. Pelvis: Small fat-containing right inguinal hernia. Prostate is not enlarged. IMPRESSION: 1. Findings compatible with acute appendicitis. 2. Multiple pulmonary nodules. Most severe: 9.0 mm solid pulmonary nodule detected on incomplete chest CT. Recommend immediate non-contrast Chest CT for further evaluation. These guidelines do not apply to immunocompromised patients and patients with cancer. Follow up in patients with significant comorbidities as clinically warranted. For lung cancer screening, adhere to Lung-RADS guidelines. Reference: Radiology. 2017; 284(1):228-43. 3. Bilateral nonobstructing nephrolithiasis. This exam was performed according to our departmental dose-optimization program, which includes automated exposure control, adjustment of the mA and/or kV according to patient size and/or use of iterative reconstruction technique.
[2020-04-23] MEDS ORDERED: PIPERACILLIN/TAZOBACTAM 3.375 GM VIAL IV ONE (23:47)
[2020-04-23] MEDS ORDERED: ONDANSETRON HCL INJ/PF 4 MG/2 ML SDV IV ONE (23:47)
--- NOTE | 2020-04-23 23:49 | ER Document Report ---
ED GI/ - General Chief Complaint: Abdominal Pain Stated Complaint: ABDOMINAL PAIN Time Seen by Provider: 04/23/20 20:32 Mode of Arrival: Wheelchair Notes: Patient is a 64-year-old male that comes emergency department for chief complaint of worsening pain in his right lower abdomen that started yesterday. He states since yesterday he has vomited 3 times, he has not eaten anything today, pain became much worse this evening. He denies fever, injury. Past medical history of hernia repair, insulin-dependent diabetes with insulin pump, atrial fibrillation which caused a stroke with no reported deficits (on Cardizem and Xarelto). He did not take any of his daily medications today. TRAVEL OUTSIDE OF THE [place] IN LAST 30 DAYS: No - Related Data Allergies/Adverse Reactions: No Known Allergies Allergy (Verified 10/15/19 15:04) Past Medical History - General Information source: Patient - Social History Smoking Status: Never Smoker Chew tobacco use (# tins/day): No Frequency of alcohol use: None Drug Abuse: None Family History: Reviewed & Not Pertinent, Other - Valvular disease Patient has homicidal ideation: No - Past Medical History Cardiac Medical History: Reports: Hx Atrial Fibrillation, Hx Hypercholesterolemia, Hx Hypertension Denies: Hx Congestive Heart Failure, Hx Heart Attack Pulmonary Medical History: Denies: Hx Asthma, Hx Bronchitis, Hx COPD, Hx Pneumonia Neurological Medical History: Denies: Hx Seizures. Comment Only: Hx Cerebrovascular Accident - 11 YEARS AGO Endocrine Medical History: Reports: Hx Diabetes Mellitus Type 1 - insulin drip, Hx Diabetes Mellitus Type 2 Renal/ Medical History: Denies: Hx Peritoneal Dialysis Musculoskeletal Medical History: Reports Hx Arthritis Psychiatric Medical History: Denies: Hx Depression Past Surgical History: Reports: Hx Abdominal Surgery - hernia repair, Hx Cardiac Catheterization, Hx Herniorrhaphy - Immunizations Hx Diphtheria, Pertussis, Tetanus Vaccination: Yes Review of Systems - Review of Systems Constitutional: No symptoms reported EENT: No symptoms reported Cardiovascular: No symptoms reported Respiratory: No symptoms reported Gastrointestinal: See HPI Genitourinary: No symptoms reported Male Genitourinary: No symptoms reported Musculoskeletal: No symptoms reported Skin: No symptoms reported Hematologic/Lymphatic: No symptoms reported Neurological/Psychological: No symptoms reported Physical Exam - Vital signs Vitals: Temp 98.1 F 04/23/20 18:10 - Notes Notes: GENERAL: Patient appears moderately uncomfortable but is cooperative and alert HEAD: Normocephalic, atraumatic. EYES: Pupils equal, round, and reactive to light. Extraocular movements intact. ENT: Oral mucosa moist, tongue midline. Oropharynx unremarkable. Airway patent. NECK: Full range of motion. Supple. Trachea midline. No lymphadenopathy. LUNGS: Clear to auscultation bilaterally, no wheezes, rales, or rhonchi. No respiratory distress. Non-tender chest wall. HEART: Regular rate and rhythm. No murmur ABDOMEN: There is generalized peritonitis of the abdomen but there is severe pain with guarding at McBurney's point. Insulin pump in the right mid abdomen. Otherwise unremarkable. EXTREMITIES: Moves all 4 extremities spontaneously. No edema, normal radial and dorsalis pedis pulses bilaterally. No cyanosis. BACK: no cervical, thoracic, lumbar midline tenderness. No saddle anesthesia, normal distal neurovascular exam. NEUROLOGICAL: Alert and oriented x3. Normal speech. Cranial nerves II through XII grossly intact. Strength 5/5 in all extremities. PSYCH: Normal affect, normal mood. SKIN: Warm, dry, normal turgor. No rashes or lesions noted. Course - Re-evaluation Re-evalutation: 04/23/20 23:50 Patient with guarding of the abdomen specifically in the right lower quadrant consistent and concerning with acute appendicitis. Leukocytosis of 15,000, creatinine is 1.6 but this is not significantly changed from prior. CT of the abdomen and pelvis reviewed and shows acute appendicitis with incidental pulmonary nodules. Incidental nephrolithiasis. Patient started on Zosyn, will be kept n.p.o., his last p.o. intake and medications were 24 hours ago. I discussed with patient, he states understanding and agreement. 04/23/20 23:[address] Paz, general surgery. He states he will evaluate the patient, requests patient have a rapid COVID test and request I placed a consult for the hospitalist to see the patient because of his insulin-dependent diabetes with a pump, atrial fibrillation on Xarelto and Cardizem, etc. I did speak with Dr. Mayen, hospitalist, he states that he will evaluate the patient in consult but he is currently tied up with a patient situation, I answered general questions about the patient as well. - Vital Signs Vital signs: Temp Pulse Resp BP Pulse Ox 98.1 F 88 19 121/92 H 98 04/24/20 04:38 04/23/20 22:10 04/24/20 04:01 04/24/20 04:01 04/24/20 04:01 - Laboratory Result Diagrams: 04/23/20 17:39 04/23/20 17:39 Laboratory results interpreted by me: 04/23/20 04/23/20 17:39 17:39 WBC 15.0 H RBC 6.41 H Hgb 18.3 H Hct 54.9 H RDW 15.7 H Seg Neuts % (Manual) 94 H Lymphocytes % (Manual) 2 L Abs Neuts (Manual) 14.1 H Abs Lymphs (Manual) 0.3 L Sodium 136.1 L Carbon Dioxide 21 L BUN 27 H Creatinine 1.62 H Est GFR ( Amer) 53 L Est GFR (MDRD) Non-Af 43 L Glucose 230 H Total Bilirubin 1.5 H Alkaline Phosphatase 143 H Discharge - Discharge Clinical Impression: Acute appendicitis Qualifiers: Acute appendicitis type: with localized peritonitis Appendicitis gangrene presence: without gangrene Appendicitis perforation presence: without perforation Appendicitis abscess presence: without abscess Qualified Code(s): K3 5.30 - Acute appendicitis with localized peritonitis, without perforation or gangrene Vomiting Qualifiers: Vomiting type: unspecified Vomiting Intractability: non-intractable Nausea presence: with nausea Qualified Code(s): R11.2 - Nausea with vomiting, unspecified Abdominal pain Qualifiers: Abdominal location: right lower quadrant Qualified Code(s): R10.31 - Right lower quadrant pain Condition: Stable Disposition: ADMITTED OBSERVATION Admitting Provider: Surgicalist Unit Admitted: Surgical Floor
[2020-04-23] MEDS ORDERED: NORMAL SALINE 1000 ML 1,000 ML IV PRN (23:54)
--- NOTE | 2020-04-24 00:48 | PDOC H&P ---
History of Present Illness Admission Date/PCP: COTY BECERRA MD Patient complains of: Abdominal pains History of Present Illness: ZAK SOMERS is a 64 year old male male with insulin-dependent diabetes mellitus, atrial fibrillation on Xarelto and diltiazem Xarelto taken about 30 hours ago, complained of right lower quadrant pains with nausea and vomiting around 2 or 3 AM 04/23/2020. He went to ED where CT scan of the abdomen was done which was compatible with acute appendicitis. Patient denies any fever diarrhea constipation or dysuria but admits to having some chills. Past Medical History Cardiac Medical History: Reports: Atrial Fibrillation, Hyperlipidema, Hypertension Denies: Congestive Heart Failure, Myocardial Infarction Pulmonary Medical History: Denies: Asthma, Bronchitis, Chronic Obstructive Pulmonary Disease (COPD), Pneumonia Neurological Medical History: Denies: Seizures Endocrine Medical History: Reports: Diabetes Mellitus Type 1 - insulin drip, Diabetes Mellitus Type 2 Musculoskeltal Medical History: Reports: Arthritis Psychiatric Medical History: Denies: Depression Hematology: Denies: Anemia Past Surgical History Past Surgical History: Reports: Cardiac Catheterization, Herniorrhaphy - Had a mesh for umbilical hernia repair, inguinal hernia laparoscopic. Social History Smoking Status: Never Smoker Electronic Cigarette use?: No Frequency of Alcohol Use: Heavy Hx Recreational Drug Use: No Drugs: None Hx Prescription Drug Abuse: No Family History Family History: Reviewed & Not Pertinent, Other - Valvular disease Parental Family History Reviewed: Yes Children Family History Reviewed: No Sibling(s) Family History Reviewed.: No Medication/Allergy Home Medications: Cetirizine HCl [Zyrtec 10 mg Tablet] 10 mg PO DAILY 05/01/18 Clopidogrel Bisulfate [Plavix 75 mg Tablet] 75 mg PO DAILY 05/01/18 Diltiazem HCl [Tiazac] 120 mg PO Q12 05/01/18 Doxazosin Mesylate [Cardura] 1 mg PO QPM 05/01/18 Dronedarone HCl [Multaq] 400 mg PO Q12 05/01/18 Duloxetine HCl [Cymbalta] 60 mg PO DAILY 05/01/18 Escitalopram Oxalate [Lexapro] 20 mg PO DAILY 05/01/18 Losartan Potassium [Cozaar] 25 mg PO DAILY 05/01/18 Potassium Chloride [Klor-Con 10 Meq Tablet ER] 10 meq PO DAILY 05/01/18 Potassium Gluconate [Potassium] 99 mg PO DAILY 05/01/18 Pregabalin [Lyrica] 150 mg PO Q8 05/01/18 Rosuvastatin Calcium [Crestor] 40 mg PO QHS 05/01/18 Acetaminophen [Tylenol 325 mg Tablet] 650 mg PO Q4HP PRN tablet 05/04/18 Diazepam [Valium 2 mg Tablet] 2 mg PO Q6HP PRN #6 tablet 05/04/18 Folic Acid [Folvite 1 mg Tablet] 1 mg PO DAILY #30 tablet 05/04/18 Ondansetron [Zofran Odt 4 mg Tablet] 1 - 2 tab PO Q4HP PRN #10 tab.rapdis 05/04/18 Thiamine HCl [Thiamine 100 mg Tablet] 100 mg PO DAILY #30 tablet 05/04/18 Allergies/Adverse Reactions: No Known Allergies Allergy (Verified 10/15/19 15:04) Review of Systems Constitutional: PRESENT: as per HPI Cardiovascular: PRESENT: other - No chest pains nor cough Gastrointestinal: PRESENT: abdominal pain, nausea, vomiting Physical Exam Vital Signs: Temp Pulse Resp BP Pulse Ox 98.1 F 88 18 136/70 H 97 04/23/20 18:20 04/23/20 22:10 04/23/20 22:10 04/23/20 22:10 04/23/20 22:10 Intake & Output 04/22/20 04/23/20 04/24/20 06:59 06:59 06:59 Intake Total 1000 Balance 1000 Weight 94.1 kg General appearance: PRESENT: mild distress Head exam: PRESENT: atraumatic Eye exam: PRESENT: conjunctiva pink Mouth exam: PRESENT: moist Neck exam: PRESENT: full ROM Respiratory exam: PRESENT: clear to auscultation hodan Cardiovascular exam: PRESENT: RRR Pulses: PRESENT: normal radial pulses Vascular exam: PRESENT: normal capillary refill GI/Abdominal exam: PRESENT: soft, tenderness - Right lower quadrant, other - Has an insulin pump on the left side of the abdomen Rectal exam: PRESENT: deferred Extremities exam: PRESENT: full ROM Musculoskeletal exam: PRESENT: ambulatory - With a cane because of right knee surgery in the past Neurological exam: PRESENT: alert, oriented to person, oriented to place, oriented to time, oriented to situation Skin exam: PRESENT: normal color, warm Results Laboratory Results: 04/23/20 17:39 04/23/20 17:39 04/23/20 04/23/20 17:39 17:39 WBC 15.0 H RBC 6.41 H Hgb 18.3 H Hct 54.9 H MCV 86 MCH 28.5 MCHC 33.3 RDW 15.7 H Plt Count 303 Seg Neutrophils % Not Reportable Sodium 136.1 L Potassium 3.6 Chloride 100 Carbon Dioxide 21 L Anion Gap 15 BUN 27 H Creatinine 1.62 H Est GFR ( Amer) 53 L Glucose 230 H Calcium 10.0 Total Bilirubin 1.5 H AST 24 Alkaline Phosphatase 143 H Total Protein 7.3 Albumin 4.2 Lipase 27.0 Impressions: Abdomen/Pelvis CT 04/23/20 21:32 IMPRESSION: 1. Findings compatible with acute appendicitis. 2. Multiple pulmonary nodules. Most severe: 9.0 mm solid pulmonary nodule detected on incomplete chest CT. Recommend immediate non-contrast Chest CT for further evaluation. These guidelines do not apply to immunocompromised patients and patients with cancer. Follow up in patients with significant comorbidities as clinically warranted. For lung cancer screening, adhere to Lung-RADS guidelines. Reference: Radiology. 2017; 284(1):228-43. 3. Bilateral nonobstructing nephrolithiasis. This exam was performed according to our departmental dose-optimization program, which includes automated exposure control, adjustment of the mA and/or kV according to patient size and/or use of iterative reconstruction technique. Assessment & Plan - Diagnosis (1) Acute appendicitis Qualifiers: Acute appendicitis type: with localized peritonitis Appendicitis gangrene presence: without gangrene Appendicitis perforation presence: without perforation Appendicitis abscess presence: without abscess Qualified Code(s): K35.30 - Acute appendicitis with localized peritonitis, without perforation or gangrene Is this a current diagnosis for this admission?: Yes (2) Diabetes Qualifiers: Diabetes mellitus type: type 1 Diabetes mellitus complication status: without complication Qualified Code(s): E10.9 - Type 1 diabetes mellitus without complications Is this a current diagnosis for this admission?: Yes (3) History of atrial flutter Is this a current diagnosis for this admission?: Yes - Time Time Spent: 30 to 50 Minutes Anticipated Discharge Disposition: Home, Self Care Anticipated Discharge Timeframe: within 48 hours - Inpatient Certification Medical Necessity: Need For IV Fluids, Need for IV Antibiotics, Need for Surgery - Plan Summary Plan Summary: 64-year-old male with right lower quadrant pain started around 3AM 04/23/2020. Patient with insulin-dependent diabetes mellitus and on atrial fibrillation on Xarelto. Xarelto/dose was around 8 PM 04/22/2020. At past history of laparoscopic umbilical hernia repair with mesh and bilateral inguinal hernia repair with mesh, laparoscopic. CT scan of the abdomen showed acute appendicitis. He is tender in the right lower quadrant. Plans: Start IV antibiotics and hydrate COVID test For laparoscopic appendectomy this morning by Dr. Angelo. Medical consultation with the hospitalist for medical issues.
[2020-04-24] MEDS ORDERED: ONDANSETRON HCL INJ/PF 4 MG/2 ML SDV IV PRN (01:29)
[2020-04-24] MEDS ORDERED: NORMAL SALINE 1000 ML 1,000 ML IV PRN ×2 (01:33→08:55)
[2020-04-24] MEDS ORDERED: ACETAMINOPHEN 650 MG SUPP.RECT PR PRN (01:53)
[2020-04-24] MEDS ORDERED: LORAZEPAM INJ 2 MG/1 ML VIAL IV PRN (01:53)
[2020-04-24] MEDS ORDERED: MORPHINE SULFATE 10 MG/ML INJ IV PRN ×4 (01:53→07:57)
[2020-04-24] MEDS ORDERED: METOPROLOL TARTRATE PF/INJ 5 MG/5 ML SDV IV PRN (01:53)
[2020-04-24] MEDS ORDERED: HYDRALAZINE HCL INJ/PF 20 MG/1 ML SDV IV PRN (01:53)
[2020-04-24] MEDS ORDERED: GLUCAGON,HUMAN RECOMB 1 MG INJ IM PRN (02:03)
[2020-04-24] MEDS ORDERED: DEXTROSE 50%-WATER 25 GM/50 ML DISP.SYRIN IV PRN ×2 (02:03)
[2020-04-24] MEDS ORDERED: DEXTROSE 40% GEL 15 GM TUBE PO PRN ×2 (02:03)
[2020-04-24] MEDS ORDERED: PIPERACILLIN/TAZOBACTAM 3.375 GM VIAL IV PRN (02:15)
[2020-04-24 02:59] LABS: APPEARANCE,URINE SLIGHTLY-CLOUDY; BILIRUBIN,URINE NEGATIVE (NEGATIVE); COLOR,URINE YELLOW; GLUCOSE, URINE 50 mg/dL (NEGATIVE); KETONES,URINE 20 mg/dL (NEGATIVE); LEUKOCYTE ESTERASE,URINE NEGATIVE (NEGATIVE); NITRITE,URINE NEGATIVE (NEGATIVE); PROTEIN,URINE 100 mg/dL (NEGATIVE); UROBILINOGEN,URINE NEGATIVE mg/dL (<2.0)
--- NOTE | 2020-04-24 05:59 | PDOC CONSULTATION ---
Consultation Consult Date: 04/24/20 Attending physician:: JACQUELIN FELDER Provider Consulted: NABIL GOODRICH Consult reason:: Management of medical problems History of Present Illness Admission Date/PCP: 04/24/20 00:44 COTY BECERRA MD Patient complains of: Right lower quadrant abdominal pain History of Present Illness: ZAK SOMERS is a 64 year old male who presented to the emergency room with a one-day history of abdominal pain. He admits waking with abdominal pain between 2 and 3 AM on the morning of 04/23/2020. His pain was a constant dull aching without radiation and was accompanied by nausea and vomiting. His pain gradually worsened over the course of the day and was associated with anorexia and brief episodes of chills. His pain is worsened by activity and partially relieved by rest. He denies other associated or accompanying signs and symptoms. He denies prior similar episodes. He has not identified any additional aggravating or ameliorating factors for his abdominal pain. In the emergency room he was found to have acute appendicitis on his CT scan of the abdomen and pelvis. He was seen by Dr. Felder who requested this consultation for management of the patient's medical problems. Past Medical History Cardiac Medical History: Reports: Atrial Fibrillation, Myocardial Infarction, Hyperlipidema, Hypertension Denies: Congestive Heart Failure, Coronary Artery Disease, DVT, Pulmonary Embolism Pulmonary Medical History: Reports: Sleep Apnea - On CPAP at night Denies: Asthma, Bronchitis, Chronic Obstructive Pulmonary Disease (COPD), Pneumonia EENT Medical History: Denies: Cataracts, Ears - Hearing aids Neurological Medical History: Reports: Ischemic CVA Denies: Hemorrhagic CVA, Seizures Endocrine Medical History: Reports: Diabetes Mellitus Type 2 Denies: Diabetes Mellitus Type 1, Hyperthyroidism, Hypothyroidism Renal/ Medical History: Reports: Chronic Kidney Disease, Nephrolithiasis Malignancy Medical History: Reports: None GI Medical History: Reports: Other - Celiac disease Denies: Cirrhosis, Gastroesophageal Reflux Disease, Hepatitis, Peptic Ulcer Disease Musculoskeltal Medical History: Reports: Arthritis Denies: Fibromyalgia Skin Medical History: Denies: Eczema, Psoriasis Psychiatric Medical History: Reports: Alcohol Dependency, Tobacco Dependency Denies: Depression, Substance Abuse Traumatic Medical History: Reports: None Hematology: Denies: Anemia, Bleeding Tendencies Infectious Medical History: Reports: None Past Surgical History Past Surgical History: Reports: Cardiac Catheterization, Herniorrhaphy - Umbilical hernia repair with mesh, bilateral inguinal hernia repair, Knee Replacement, Orthopedic Surgery - Right knee replacement Social History Information Source: Patient Lives with: Spouse/Significant other Smoking Status: Former Smoker Electronic Cigarette use?: No Frequency of Alcohol Use: None - Heavy alcohol consumption in the past Hx Recreational Drug Use: No Drugs: None Hx Prescription Drug Abuse: No - Advance Directive Resuscitation Status: Full Code Surrogate healthcare decision maker:: Delilah Somers Family History Family History: Other - Valvular heart disease, father committed suicide, is not close to most of his siblings and is uncertain of their medical status.. denies: CAD, DM, Hypertension, Malignancy Parental Family History Reviewed: Yes Children Family History Reviewed: No Sibling(s) Family History Reviewed.: Yes Medication/Allergy Home Medications: Cetirizine HCl [Zyrtec 10 mg Tablet] 10 mg PO DAILY 05/01/18 Clopidogrel Bisulfate [Plavix 75 mg Tablet] 75 mg PO DAILY 05/01/18 Diltiazem HCl [Tiazac] 120 mg PO Q12 05/01/18 Doxazosin Mesylate [Cardura] 1 mg PO QPM 05/01/18 Dronedarone HCl [Multaq] 400 mg PO Q12 05/01/18 Duloxetine HCl [Cymbalta] 60 mg PO DAILY 05/01/18 Escitalopram Oxalate [Lexapro] 20 mg PO DAILY 05/01/18 Losartan Potassium [Cozaar] 25 mg PO DAILY 05/01/18 Potassium Chloride [Klor-Con 10 Meq Tablet ER] 10 meq PO DAILY 05/01/18 Potassium Gluconate [Potassium] 99 mg PO DAILY 05/01/18 Pregabalin [Lyrica] 150 mg PO Q8 05/01/18 Rosuvastatin Calcium [Crestor] 40 mg PO QHS 05/01/18 Acetaminophen [Tylenol 325 mg Tablet] 650 mg PO Q4HP PRN tablet 05/04/18 Diazepam [Valium 2 mg Tablet] 2 mg PO Q6HP PRN #6 tablet 05/04/18 Folic Acid [Folvite 1 mg Tablet] 1 mg PO DAILY #30 tablet 05/04/18 Ondansetron [Zofran Odt 4 mg Tablet] 1 - 2 tab PO Q4HP PRN #10 tab.rapdis 05/04/18 Thiamine HCl [Thiamine 100 mg Tablet] 100 mg PO DAILY #30 tablet 05/04/18 Allergies/Adverse Reactions: No Known Allergies Allergy (Verified 10/15/19 15:04) Review of Systems Constitutional: PRESENT: as per HPI, anorexia, chills. ABSENT: fever(s) Eyes: ABSENT: visual disturbances, other - Eye pain Ears: ABSENT: hearing changes, other - Ear pain Nose, Mouth, and Throat: ABSENT: headache(s), sore throat Cardiovascular: ABSENT: chest pain, palpitations Respiratory: ABSENT: cough, dyspnea Gastrointestinal: PRESENT: as per HPI, abdominal pain, nausea, vomiting. ABSENT: constipation, diarrhea Genitourinary: ABSENT: dysuria, hematuria Musculoskeletal: ABSENT: back pain, joint swelling, muscle weakness Integumentary: ABSENT: pruritus, rash Neurological: ABSENT: confusion, convulsions, focal weakness, memory loss, syncope Psychiatric: ABSENT: anxiety, depression Endocrine: ABSENT: cold intolerance, heat intolerance Hematologic/Lymphatic: ABSENT: easy bleeding, easy bruising Allergic/Immunologic: ABSENT: seasonal rhinorrhea Physical Exam Vital Signs: Temp Pulse Resp BP Pulse Ox 98.1 F 88 18 136/70 H 97 04/23/20 18:20 04/23/20 22:10 04/23/20 22:10 04/23/20 22:10 04/23/20 22:10 Intake & Output 04/22/20 04/23/20 04/24/20 23:59 23:59 23:59 Intake Total 1000 Balance 1000 Weight 94.1 kg General appearance: PRESENT: cooperative, mild distress - Secondary to abdominal pain Head exam: PRESENT: atraumatic, normocephalic Eye exam: PRESENT: conjunctiva pink. ABSENT: conjunctival injection, scleral ic terus Ear exam: PRESENT: normal external ear exam. ABSENT: bleeding, drainage Mouth exam: PRESENT: dry mucosa, neck supple Neck exam: ABSENT: thyromegaly, tracheal deviation Respiratory exam: PRESENT: clear to auscultation hodan, symmetrical, unlabored Cardiovascular exam: PRESENT: RRR. ABSENT: clicks, gallop, rubs Pulses: PRESENT: normal radial pulses, normal dorsalis pedis pul Vascular exam: PRESENT: normal capillary refill. ABSENT: pallor GI/Abdominal exam: PRESENT: hypoactive bowel sounds, soft, tenderness - Tenderness in the right lower quadrant on palpation localizing to McBurney's point Rectal exam: PRESENT: deferred Extremities exam: ABSENT: joint swelling, pedal edema Musculoskeletal exam: ABSENT: deformity, dislocation Neurological exam: PRESENT: alert, oriented to person, oriented to place, oriented to time, oriented to situation, CN II-XII grossly intact. ABSENT: motor sensory deficit Psychiatric exam: PRESENT: appropriate affect, normal mood Skin exam: PRESENT: dry, intact, warm. ABSENT: jaundice, rash, urticaria Results Laboratory Results: 04/23/20 17:39 04/23/20 17:39 04/23/20 04/23/20 17:39 17:39 WBC 15.0 H RBC 6.41 H Hgb 18.3 H Hct 54.9 H MCV 86 MCH 28.5 MCHC 33.3 RDW 15.7 H Plt Count 303 Seg Neutrophils % Not Reportable Sodium 136.1 L Potassium 3.6 Chloride 100 Carbon Dioxide 21 L Anion Gap 15 BUN 27 H Creatinine 1.62 H Est GFR ( Amer) 53 L Glucose 230 H Calcium 10.0 Total Bilirubin 1.5 H AST 24 Alkaline Phosphatase 143 H Total Protein 7.3 Albumin 4.2 Lipase 27.0 Impressions: Abdomen/Pelvis CT 04/23/20 21:32 IMPRESSION: 1. Findings compatible with acute appendicitis. 2. Multiple pulmonary nodules. Most severe: 9.0 mm solid pulmonary nodule detected on incomplete chest CT. Recommend immediate non-contrast Chest CT for further evaluation. These guidelines do not apply to immunocompromised patients and patients with cancer. Follow up in patients with significant comorbidities as clinically warranted. For lung cancer screening, adhere to Lung-RADS guidelines. Reference: Radiology. 2017; 284(1):228-43. 3. Bilateral nonobstructing nephrolithiasis. This exam was performed according to our departmental dose-optimization program, which includes automated exposure control, adjustment of the mA and/or kV according to patient size and/or use of iterative reconstruction technique. Assessment and Plan - Diagnosis (1) Acute appendicitis Qualifiers: Acute appendicitis type: with localized peritonitis Appendicitis gangrene presence: without gangrene Appendicitis perforation presence: without perforation Appendicitis abscess presence: without abscess Qualified Code(s): K35.30 - Acute appendicitis with localized peritonitis, without perforation or gangrene Is this a current diagnosis for this admission?: Yes (2) Abdominal pain Qualifiers: Abdominal location: right lower quadrant Qualified Code(s): R10.31 - Right lower quadrant pain Is this a current diagnosis for this admission?: Yes (3) Type 2 diabetes mellitus without obesity Is this a current diagnosis for this admission?: Yes (4) Chronic renal failure, stage 3 (moderate) Is this a current diagnosis for this admission?: Yes (5) Hypertension Qualifiers: Hypertension type: unspecified Qualified Code(s): I10 - Essential (primary) hypertension Is this a current diagnosis for this admission?: Yes (6) Hyperlipidemia Qualifiers: Hyperlipidemia type: unspecified Qualified Code(s): E78.5 - Hyperlipidemia, unspecified Is this a current diagnosis for this admission?: Yes (7) Atrial fibrillation/flutter Is this a current diagnosis for this admission?: Yes - Plan Summary Summary: Patient will be followed by our service. He will be treated with morphine sulfate 2 to 4 mg IV every 2 hours as needed for pain. He will receive Ativan 1 mg IV every 4 hours as needed for anxiety or restlessness. He will receive IV Zosyn 3.375 g every 6 hours. He will be on n.p.o. diet in anticipation of surgery later this morning. Hypertension will be controlled with IV hydralazine and/or metoprolol as needed. Every 4 hour Accu-Cheks will be obtained with sliding scale insulin administered for hyperglycemia and a hypoglycemic protocol in place. Patient is receiving IV fluids per Dr. Felder's orders. CBCs, metabolic profiles and additional laboratory and/or radiographic evaluations will be obtained as appropriate. - Time Time Spent with patient: 15-24 minutes Medications reviewed and adjusted accordingly: Yes Anticipated Discharge Disposition: Home with Home Health Anticipated Discharge Timeframe: within 72 hours - Inpatient Certification Based on my medical assessment, after consideration of the patient's comorbidities, presenting symptoms, or acuity I expect that the services needed warrant INPATIENT care.: Yes I certify that my determination is in accordance with my understanding of Medicare's requirements for reasonable and necessary INPATIENT services [42 CFR 412.3e].: Yes Medical Necessity: Significant Comorbidiites Make Outpatient Treatment Too Risky, Need Close Monitoring Due to Risk of Patient Decompensation, Need For IV Fluids, Need for Pain Control, Need for IV Antibiotics, Need for Surgery, Risk of Complication if Not Cared For in Hospital
[2020-04-24] MEDS ORDERED: PIPERACILLIN SODIUM/TAZOBACTAM 3.375 GM in NORMAL SALINE 100 ML IV SCH (06:00)
[2020-04-24] MEDS: INSULIN REG, HUMAN 100 UNIT/ML 3 ML VIAL (PYX) SUBCUT SCH ×5 (06:24→23:30)
[2020-04-24] MEDS ORDERED: FENTANYL CITRATE INJ/PF 100 MCG/2 ML AMPUL ONE ×2 (07:07→09:01)
[2020-04-24] MEDS ORDERED: HYDROMORPHONE HCL INJ/PF 2 MG/ML AMPULE ONE (07:07)
[2020-04-24] MEDS ORDERED: KETOROLAC TROMETHAMINE 60 MG/2 ML SDV ONE (07:07)
[2020-04-24] MEDS ORDERED: DEXAMETHASONE SOD PHOSPHATE INJ 4 MG/1 ML VIAL ONE (07:07)
[2020-04-24] MEDS ORDERED: ONDANSETRON HCL INJ/PF 4 MG/2 ML SDV ONE (07:07)
[2020-04-24] MEDS ORDERED: MIDAZOLAM 2 MG/2 ML INJ ONE (07:07)
[2020-04-24] MEDS ORDERED: LIDOCAINE 2% INJ-PF (100 MG/5 ML) SYRINGE ONE (07:07)
[2020-04-24] MEDS ORDERED: PROPOFOL INJ 200 MG/20 ML VIAL IV ONE (07:08)
[2020-04-24] MEDS ORDERED: BUPIVACAINE HCL 0.5%-EPI 1:200000 INJ/PF 30 ML VIAL ONE (07:10)
[2020-04-24] MEDS ORDERED: OXYCODONE-ACETAMINOPHEN 5-325 MG TABLET PO PRN ×2 (07:57)
[2020-04-24] MEDS ORDERED: PROMETHAZINE HCL INJ 25 MG/1 ML VIAL IV PRN ×2 (07:57)
[2020-04-24] MEDS ORDERED: FENTANYL CITRATE INJ/PF 100 MCG/2 ML AMPUL IV PRN ×3 (07:57)
[2020-04-24] MEDS ORDERED: DIPHENHYDRAMINE HCL 50 MG/ML VIAL IV PRN (07:57)
[2020-04-24] MEDS ORDERED: MEPERIDINE HCL/PF INJ 25 MG/1 ML DISP.SYRIN IV PRN (07:57)
[2020-04-24] MEDS ORDERED: CEFOXITIN INJ 1 GM VIAL ONE (07:57)
--- NOTE | 2020-04-24 08:49 | Operative Report ---
Operative Report DATE OF SURGERY: 04/24/20 PREOPERATIVE DIAGNOSIS: Acute appendicitis POSTOPERATIVE DIAGNOSIS: Acute necrotic non-perforated appendicitis OPERATION: Laparoscopic appendectomy; laparoscopic lysis of adhesions SURGEON: CORRIE ENRIQUE ANESTHESIA: GA - +15 mL of 1% lidocaine without epinephrine TISSUE REMOVED OR ALTERED: Appendix COMPLICATIONS: None ESTIMATED BLOOD LOSS: Negligible INTRAOPERATIVE FINDINGS: Acutely inflamed and necrotic appendicitis without evidence of perforation: Tubal intraperitoneal adhesions secondary to previous laparoscopic umbilical hernia repair with mesh PROCEDURE: The procedure was done in the operating room. The patient was placed in a sup ine position, general anesthesia induced by endotracheal intubation, the abdomen was prepped and draped in usual fashion. An incision was made in the left upper quadrant, with a #15 blade, the skin was tented with towel clips and a 5 mm port with Optiview adapter and scope were inserted through the left upper quadrant of the abdominal wall into the peritoneal cavity. After they CO2 pneumoperitoneum was obtained, under direct visualization a 5 mm report was inserted in the right lateral upper quadrant of the abdomen following skin incision. A 5 mm port was placed in the right lower quadrant to take down multiple adhesions between the greater omentum and the mesh utilized for previous umbilical herniorrhaphy. After this was accomplished, a 12 mm port was placed through the umbilicus fo llowing skin incision, while a 5 mm port was inserted in left lower quadrant of the abdomen following skin incision. The patient was placed in steep Trendelenburg position with the right side elevated. The appendix was then identified by tracing the anterior tenia of the cecum, the appendix was then found, elevated, and stretched. The mesentery of the appendix was divided with the LigaSure. The appendix was found to be [non-perforated]. The appendix was stapled at the base with an Endo QI stapler, extracted from the peritoneal cavity with an Endobag through the umbilical port. The pneumoperitoneum was then re-established, the stapled line was examined and found to be intact. [ The right lower quadrant was then irrigated with normal saline until clear.] [A 19 mm Iraqi round Brennon drain was inserted through the umbilical port and extracted from the left lower quadrant abdominal port; it was placed in the right lower quadrant. The drain was then secured to the skin with a 2-0 nylon suture. ] The umbilical fascial defect was closed with a [id number] 0 Vicryl suture, placed with a fascia closure device under direct visualization and left untied. All instruments were removed, the pneumoperitoneum was released, and all ports were removed. The umbilical fascial defect was closed with the previously placed [id number] 0 Vicryl suture, all skin incisions were closed with a 4-0 PDS running subcuticular suture, and covered with Dermabond. The patient tolerated the procedure well, was extubated, and transferred to the recovery room in satisfactory conditions.
[2020-04-24] MEDS: PIPERACILLIN SODIUM/TAZOBACTAM 3.375 GM in NORMAL SALINE 100 ML IV SCH ×3 (10:00→22:57)
[2020-04-24] MEDS: FAMOTIDINE 20 MG TABLET PO SCH ×2 (11:00→22:59)
[2020-04-24] MEDS: ENOXAPARIN SODIUM INJ 40 MG/0.4 ML DISP.SYRIN SUBCUT SCH (11:00)
[2020-04-24] MEDS: MORPHINE SULFATE 10 MG/ML INJ IV PRN ×3 (13:18→22:56)
[2020-04-24] MEDS ORDERED: PHENYLEPHRINE HCL INJ/PF 10 MG/1 ML SDV ONE (14:20)
[2020-04-24] MEDS ORDERED: GLYCOPYRROLATE 1 MG/5 ML VIAL ONE (14:20)
[2020-04-24] MEDS ORDERED: NEOSTIGMINE METHYLSULFATE 10 MG/10 ML VIAL ONE (14:20)
--- NOTE | 2020-04-24 22:58 | PDOC PROGRESS REPORT ---
Subjective Progress Note for:: 04/24/20 Subjective:: Wale was seen and examined at bedside. Reports minimal postop pain. Passing gas no bowel movement, afebrile no nausea and vomiting. Status post laparoscopic appendectomy with adhesional lysis postop day 0 Reason For Visit: ACUTE APPENDICITIS,INSULIN DEPENDENT DIABETES Physical Exam Vital Signs: Temp Pulse Resp BP Pulse Ox 98.1 F 74 21 H 147/77 H 97 04/24/20 19:38 04/24/20 19:38 04/24/20 19:38 04/24/20 19:38 04/24/20 19:38 Intake & Output 04/23/20 04/24/20 04/25/20 06:59 06:59 06:59 Intake Total 1000 2160 Output Total 260 Balance 1000 1900 Weight 94.4 kg General appearance: PRESENT: no acute distress, cooperative Head exam: PRESENT: atraumatic, normocephalic Eye exam: PRESENT: EOMI, PERRLA Mouth exam: PRESENT: moist Neck exam: ABSENT: JVD Respiratory exam: PRESENT: clear to auscultation hodan, symmetrical, unlabored. ABSENT: accessory muscle use Cardiovascular exam: PRESENT: RRR, +S1, +S2. ABSENT: diastolic murmur, gallop, rubs, systolic murmur Pulses: PRESENT: normal carotid pulses GI/Abdominal exam: PRESENT: diminished bowel sounds, soft. ABSENT: distended, guarding, rebound Neurological exam: PRESENT: alert, awake Results Laboratory Results: 04/23/20 17:39 04/23/20 17:39 04/24/20 02:30 Urine Color YELLOW Urine Appearance SLIGHTLY-CLOUDY Urine pH 5.0 Ur Specific [place] 1.020 Urine Protein 100 H Urine Glucose (UA) 50 H Urine Ketones 20 H Urine Blood NEGATIVE Urine Nitrite NEGATIVE Ur Leukocyte Esterase NEGATIVE Urine WBC (Auto) 4 Urine RBC (Auto) 5 Impressions: Abdomen/Pelvis CT 04/23/20 21:32 IMPRESSION: 1. Findings compatible with acute appendicitis. 2. Multiple pulmonary nodules. Most severe: 9.0 mm solid pulmonary nodule detected on incomplete chest CT. Recommend immediate non-contrast Chest CT for further evaluation. These guidelines do not apply to immunocompromised patients and patients with cancer. Follow up in patients with significant comorbidities as clinically warranted. For lung cancer screening, adhere to Lung-RADS guidelines. Reference: Radiology. 2017; 284(1):228-43. 3. Bilateral nonobstructing nephrolithiasis. This exam was performed according to our departmental dose-optimization program, which includes automated exposure control, adjustment of the mA and/or kV according to patient size and/or use of iterative reconstruction technique. Assessment and Plan - Diagnosis (1) Atrial fibrillation/flutter Is this a current diagnosis for this admission?: Yes Plan: -Patient is on dronedarone and Cardizem and rivaroxaban for his A. fib -Resume Cardizem and dronedarone - rivaroxaban held because he is postop -We will continue to monitor (2) Type 2 diabetes mellitus without obesity Is this a current diagnosis for this admission?: Yes Plan: -Is on insulin pump at home -Inpatient we will put him on sliding scale and Lantus -Point of care glucose will be checked for meals and at bedtime (3) Acute appendicitis Qualifiers: Acute appendicitis type: with localized peritonitis Appendicitis gangrene presence: without gangrene Appendicitis perforation presence: without perforation Appendicitis abscess presence: without abscess Qualified Code(s): K35.30 - Acute appendicitis with localized peritonitis, without perforation or gangrene Is this a current diagnosis for this admission?: Yes Plan: -status post appendectomy with adhesional lysis stop day 0 -On Zosyn per surgery -Subcu Lovenox for DVT prophylaxis -Surgery put in diet orders (4) Hypertension Qualifiers: Hypertension type: unspecified Qualified Code(s): I10 - Essential (primary) hypertension Is this a current diagnosis for this admission?: Yes Plan: -Antihypertensive medications resumed - Time Time Spent with patient: Less than 15 minutes Medications reviewed and adjusted accordingly: Yes Anticipated Discharge Disposition: Home, Self Care Anticipated Discharge Timeframe: within 48 hours - Inpatient Certification Based on my medical assessment, after consideration of the patient's comorbidities, presenting symptoms, or acuity I expect that the services needed warrant INPATIENT care.: Yes I certify that my determination is in accordance with my understanding of Medicare's requirements for reasonable and necessary INPATIENT services [42 CFR 412.3e].: Yes Medical Necessity: Need for IV Antibiotics
[2020-04-24] MEDS: AMITRIPTYLINE HCL 25 MG TABLET PO SCH (22:59)
[2020-04-24] MEDS: DRONEDARONE HYDROCHLORIDE 400 MG TABLET PO SCH (23:00)
[2020-04-24] MEDS: INSULIN GLARGINE,HUM.REC.ANLOG 1,000 UNIT/10 ML VIAL SUBCUT SCH (23:32)
[2020-04-24] MEDS: (PENDING PHARMACY ID) (Rosuvastatin Calcium [Crestor] 40 MG) PO SCH (23:35)
[2020-04-24 23:46] LABS: APPEARANCE,URINE CLEAR; BILIRUBIN,URINE NEGATIVE (NEGATIVE); COLOR,URINE YELLOW; GLUCOSE, URINE >=500 mg/dL (NEGATIVE); KETONES,URINE TRACE mg/dL (NEGATIVE); LEUKOCYTE ESTERASE,URINE NEGATIVE (NEGATIVE); NITRITE,URINE NEGATIVE (NEGATIVE); PROTEIN,URINE 30 mg/dL (NEGATIVE); URINE SPECIFIC GRAVITY 1.009; UROBILINOGEN,URINE NEGATIVE mg/dL (<2.0)
[2020-04-25] MEDS: INSULIN REG, HUMAN 100 UNIT/ML 3 ML VIAL (PYX) SUBCUT SCH ×2 (02:43→07:01)
[2020-04-25] MEDS: PIPERACILLIN SODIUM/TAZOBACTAM 3.375 GM in NORMAL SALINE 100 ML IV SCH ×4 (04:13→21:19)
[2020-04-25 05:10] LABS: ABSOLUTE LYMPHOCYTES (AUTO) 0.7 10^3/uL (0.5-4.7); ABSOLUTE NEUT (AUTO) 9.5 10^3/uL (1.7-8.2); BASOPHILS % (AUTO) 0.3 % (0-2); EOSINOPHILS % (AUTO) 0.1 % (0-6); HEMATOCRIT 41.6 % (37.9-51.0); LYMPHOCYTES % (AUTO) 6.3 % (13-45); MEAN CORPUSCULAR HEMOGLOBIN 28.7 pg (27.0-33.4); MEAN CORPUSCULAR HGB CONC 33.8 g/dL (32.0-36.0); MEAN CORPUSCULAR VOLUME 85 fl (80-97); MONOCYTES % (AUTO) 8.5 % (3-13); PLATELET COUNT 227 10^3/uL (150-450); RED BLOOD COUNT 4.91 10^6/uL (4.35-5.55); RED CELL DISTRIBUTION WIDTH 15.9 % (11.5-14.0); SEGMENTED NEUTROPHILS % (AUTO) 84.8 % (42-78); TOTAL CELLS COUNTED % (AUTO) 100 %; WHITE BLOOD COUNT 11.2 10^3/uL (4.0-10.5)
[2020-04-25 05:15] LABS: HEMOGLOBIN 14.1 g/dL (13.5-17.0)
[2020-04-25 05:29] LABS: CHOLESTEROL 115.26 mg/dL (0-200); TRIGLYCERIDES 89 mg/dL (<150)
[2020-04-25 05:34] LABS: ALBUMIN 3.1 g/dL (3.5-5.0); ALKALINE PHOSPHATASE 82 U/L (38-126); ANION GAP 9 (5-19); ASPARTATE AMINO TRANSFERASE 19 U/L (17-59); BILIRUBIN,DIRECT 0.3 mg/dL (0.0-0.4); BILIRUBIN,TOTAL 0.7 mg/dL (0.2-1.3); BLOOD UREA NITROGEN 28 mg/dL (7-20); CALCIUM 8.8 mg/dL (8.4-10.2); CARBON DIOXIDE 27 mmol/L (22-30); CHLORIDE 96 mmol/L (98-107); GLUCOSE 261 mg/dL (75-110); POTASSIUM 4.1 mmol/L (3.6-5.0); TOTAL PROTEIN 5.9 g/dL (6.3-8.2)
[2020-04-25 05:40] LABS: DIRECT LDL 58 mg/dL (<100)
[2020-04-25] MEDS: MORPHINE SULFATE 10 MG/ML INJ IV PRN (06:51)
--- NOTE | 2020-04-25 08:49 | PDOC PROGRESS REPORT ---
Subjective Progress Note for:: 04/25/20 Subjective:: Patient comfortable, without complaints, tolerating p.o. well, ambulating well Reason For Visit: ACUTE APPENDICITIS,INSULIN DEPENDENT DIABETES Physical Exam Vital Signs: Temp Pulse Resp BP Pulse Ox 97.8 F 61 19 139/68 H 99 04/25/20 07:34 04/25/20 07:34 04/25/20 07:34 04/25/20 07:34 04/25/20 07:34 Intake & Output 04/24/20 04/25/20 04/26/20 06:59 06:59 06:59 Intake Total 1000 2260 Output Total 1360 Balance 1000 900 Weight 94.4 kg 97.1 kg General appearance: PRESENT: no acute distress Head exam: PRESENT: atraumatic Respiratory exam: PRESENT: clear to auscultation hodan Cardiovascular exam: PRESENT: RRR GI/Abdominal exam: PRESENT: soft, other - Nondistended, all incisions are clean, dry, and intact Results Laboratory Results: 04/25/20 04:45 04/25/20 04:45 04/24/20 04/25/20 04/25/20 22:30 04:45 04:45 WBC 11.2 H RBC 4.91 Hgb 14.1 D Hct 41.6 MCV 85 MCH 28.7 MCHC 33.8 RDW 15.9 H Plt Count 227 Seg Neutrophils % 84.8 H Sodium Potassium Chloride Carbon Dioxide Anion Gap BUN Creatinine Est GFR ( Amer) Glucose Calcium Magnesium 2.0 Total Bilirubin AST Alkaline Phosphatase Total Protein Albumin Triglycerides 89 Cholesterol 115.26 LDL Cholesterol Direct 58 VLDL Cholesterol 18.0 HDL Cholesterol 42 Urine Color YELLOW Urine Appearance CLEAR Urine pH 5.0 Ur Specific [place] 1.009 Urine Protein 30 H Urine Glucose (UA) >=500 H Urine Ketones TRACE H Urine Blood NEGATIVE Urine Nitrite NEGATIVE Ur Leukocyte Esterase NEGATIVE Urine WBC (Auto) 0 Urine RBC (Auto) 1 04/25/20 04:45 WBC RBC Hgb Hct MCV MCH MCHC RDW Plt Count Seg Neutrophils % Sodium 132.0 L Potassium 4.1 Chloride 96 L Carbon Dioxide 27 Anion Gap 9 BUN 28 H Creatinine 1.65 H Est GFR ( Amer) 51 L Glucose 261 H Calcium 8.8 Magnesium Total Bilirubin 0.7 AST 19 Alkaline Phosphatase 82 Total Protein 5.9 L Albumin 3.1 L Triglycerides Cholesterol LDL Cholesterol Direct VLDL Cholesterol HDL Cholesterol Urine Color Urine Appearance Urine pH Ur Specific [place] Urine Protein Urine Glucose (UA) Urine Ketones Urine Blood Urine Nitrite Ur Leukocyte Esterase Urine WBC (Auto) Urine RBC (Auto) Impressions: Abdomen/Pelvis CT 04/23/20 21:32 IMPRESSION: 1. Findings compatible with acute appendicitis. 2. Multiple pulmonary nodules. Most severe: 9.0 mm solid pulmonary nodule detected on incomplete chest CT. Recommend immediate non-contrast Chest CT for further evaluation. These guidelines do not apply to immunocompromised patients and patients with cancer. Follow up in patients with significant comorbidities as clinically warranted. For lung cancer screening, adhere to Lung-RADS guidelines. Reference: Radiology. 2017; 284(1):228-43. 3. Bilateral nonobstructing nephrolithiasis. This exam was performed according to our departmental dose-optimization program, which includes automated exposure control, adjustment of the mA and/or kV according to patient size and/or use of iterative reconstruction technique. Assessment & Plan - Diagnosis (1) Acute appendicitis Qualifiers: Acute appendicitis type: with localized peritonitis Appendicitis gangrene presence: without gangrene Appendicitis perforation presence: without per foration Appendicitis abscess presence: without abscess Qualified Code(s): K35.30 - Acute appendicitis with localized peritonitis, without perforation or gangrene - Time Anticipated Discharge Disposition: Home, Self Care Anticipated Discharge Timeframe: within 72 hours - Plan Summary Plan Summary: Assessment: Postoperative day #1 following laparoscopic appendectomy for acute gangrenous, non-perforated appendicitis Vital signs stable patient afebrile Good urine output White blood cell count 11 down from15 yesterday Elevation of BUN/creatinine Abdomen soft, nondistended, incisions clean dry intact Plan: Continue IV fluids Continue IV antibiotics Stop IV narcotics Monitor blood sugar: Patient is currently keeping his insulin pump off Control patient blood sugar with insulin sliding scale Most likely discharge in 48 hours
[2020-04-25] MEDS ORDERED: ACETAMINOPHEN 325 MG TABLET PO PRN (08:55)
[2020-04-25] MEDS ORDERED: INSULIN LISPRO 100 UNIT/ML 3 ML VIAL SUBCUT SCH (09:00)
[2020-04-25] MEDS ORDERED: GLUCAGON,HUMAN RECOMB 1 MG INJ IM PRN (09:30)
[2020-04-25] MEDS ORDERED: DEXTROSE 40% GEL 15 GM TUBE X 2 PO PRN (09:30)
[2020-04-25] MEDS ORDERED: DEXTROSE 50%-WATER SYRINGE 12.5 GM/25 ML DOSE IV PRN (09:30)
[2020-04-25] MEDS ORDERED: DEXTROSE 50%-WATER SYRINGE 25 GM/50 ML DOSE IV PRN (09:30)
[2020-04-25] MEDS ORDERED: DEXTROSE 40% GEL 15 GM TUBE PO PRN (09:30)
[2020-04-25] MEDS: FAMOTIDINE 20 MG TABLET PO SCH ×2 (09:56→22:03)
[2020-04-25] MEDS: DULOXETINE HCL 30 MG CAPSULE.DR PO SCH (09:56)
[2020-04-25] MEDS: ENOXAPARIN SODIUM INJ 40 MG/0.4 ML DISP.SYRIN SUBCUT SCH (09:56)
[2020-04-25] MEDS: LOSARTAN POTASSIUM 50 MG TABLET PO SCH (09:56)
[2020-04-25] MEDS: CHLORTHALIDONE 25 MG TABLET PO SCH (09:57)
[2020-04-25] MEDS: DRONEDARONE HYDROCHLORIDE 400 MG TABLET PO SCH ×2 (09:57→22:03)
[2020-04-25] MEDS: INSULIN GLARGINE,HUM.REC.ANLOG 1,000 UNIT/10 ML VIAL SUBCUT SCH (09:57)
[2020-04-25] MEDS ORDERED: DULOXETINE HCL 90 MG PO SCH (10:00)
--- NOTE | 2020-04-25 11:42 | PDOC PROGRESS REPORT ---
Subjective Progress Note for:: 04/25/20 Subjective:: The patient was seen and examined at bedside. Is able to pass gas but has not had a bowel movement. Postoperative pain minimal, no nausea or vomiting. Started on regular diet this morning, tolerating well Reason For Visit: ACUTE APPENDICITIS,INSULIN DEPENDENT DIABETES Physical Exam Vital Signs: Temp Pulse Resp BP Pulse Ox 97.8 F 61 19 139/68 H 99 04/25/20 07:34 04/25/20 07:34 04/25/20 07:34 04/25/20 07:34 04/25/20 07:34 Intake & Output 04/24/20 04/25/20 04/26/20 06:59 06:59 06:59 Intake Total 1000 2360 Output Total 1360 Balance 1000 1000 Weight 94.4 kg 97.1 kg General appearance: PRESENT: no acute distress, cooperative Head exam: PRESENT: atraumatic, normocephalic Eye exam: PRESENT: EOMI, PERRLA Mouth exam: PRESENT: moist Throat exam: ABSENT: tonsillar erythema Neck exam: PRESENT: full ROM. ABSENT: JVD Respiratory exam: PRESENT: clear to auscultation hodan, symmetrical, unlabored Cardiovascular exam: PRESENT: RRR, +S1, +S2 Pulses: PRESENT: normal carotid pulses GI/Abdominal exam: PRESENT: normal bowel sounds, soft. ABSENT: tenderness Extremities exam: ABSENT: pedal edema Musculoskeletal exam: PRESENT: full ROM Neurological exam: PRESENT: alert, awake, oriented to person, oriented to place, oriented to time Results Laboratory Results: 04/25/20 04:45 04/25/20 04:45 04/24/20 04/25/20 04/25/20 22:30 04:45 04:45 WBC 11.2 H RBC 4.91 Hgb 14.1 D Hct 41.6 MCV 85 MCH 28.7 MCHC 33.8 RDW 15.9 H Plt Count 227 Seg Neutrophils % 84.8 H Sodium Potassium Chloride Carbon Dioxide Anion Gap BUN Creatinine Est GFR ( Amer) Glucose Calcium Magnesium 2.0 Total Bilirubin AST Alkaline Phosphatase Total Protein Albumin Triglycerides 89 Cholesterol 115.26 LDL Cholesterol Direct 58 VLDL Cholesterol 18.0 HDL Cholesterol 42 Urine Color YELLOW Urine Appearance CLEAR Urine pH 5.0 Ur Specific [place] 1.009 Urine Protein 30 H Urine Glucose (UA) >=500 H Urine Ketones TRACE H Urine Blood NEGATIVE Urine Nitrite NEGATIVE Ur Leukocyte Esterase NEGATIVE Urine WBC (Auto) 0 Urine RBC (Auto) 1 04/25/20 04:45 WBC RBC Hgb Hct MCV MCH MCHC RDW Plt Count Seg Neutrophils % Sodium 132.0 L Potassium 4.1 Chloride 96 L Carbon Dioxide 27 Anion Gap 9 BUN 28 H Creatinine 1.65 H Est GFR ( Amer) 51 L Glucose 261 H Calcium 8.8 Magnesium Total Bilirubin 0.7 AST 19 Alkaline Phosphatase 82 Total Protein 5.9 L Albumin 3.1 L Triglycerides Cholesterol LDL Cholesterol Direct VLDL Cholesterol HDL Cholesterol Urine Color Urine Appearance Urine pH Ur Specific [place] Urine Protein Urine Glucose (UA) Urine Ketones Urine Blood Urine Nitrite Ur Leukocyte Esterase Urine WBC (Auto) Urine RBC (Auto) Impressions: Abdomen/Pelvis CT 04/23/20 21:32 IMPRESSION: 1. Findings compatible with acute appendicitis. 2. Multiple pulmonary nodules. Most severe: 9.0 mm solid pulmonary nodule detected on incomplete chest CT. Recommend immediate non-contrast Chest CT for further evaluation. These guidelines do not apply to immunocompromised patients and patients with cancer. Follow up in patients with significant comorbidities as clinically warranted. For lung cancer screening, adhere to Lung-RADS guidelines. Reference: Radiology. 2017; 284(1):228-43. 3. Bilateral nonobstructing nephrolithiasis. This exam was performed according to our departmental dose-optimization program, which includes automated exposure control, adjustment of the mA and/or kV according to patient size and/or use of iterative reconstruction technique. Assessment and Plan - Diagnosis (1) Atrial fibrillation/flutter Is this a current diagnosis for this admission?: Yes Plan: -Patient is on dronedarone and Cardizem and rivaroxaban for his A. fib -Resumed Cardizem and dronedarone -rivaroxaban held because he is postop. According to the patient he will restart his anticoagulation on Monday -We will continue to monitor (2) Type 2 diabetes mellitus without obesity Is this a current diagnosis for this admission?: Yes Plan: -Is on insulin pump at home -[id number] blood glucose noted to be high. Started on scheduled insulin with meals, on top of Lantus and sliding scale insulin -Point of care glucose will be checked for meals and at bedtime (3) Acute appendicitis Qualifiers: Acute appendicitis type: with localized peritonitis Appendicitis gangrene presence: without gangrene Appendicitis perforation presence: without perforation Appendicitis abscess presence: without abscess Qualified Code(s): K35.30 - Acute appendicitis with localized peritonitis, without perforation or gangrene Is this a current diagnosis for this admission?: Yes Plan: -status post appendectomy with adhesional lysis stop day 1 -On Zosyn per surgery -Subcu Lovenox for DVT prophylaxis -Diet advanced to general per surgery, tolerating well -Surgery plan is to discharge him tomorrow (4) Hypertension Qualifiers: Hypertension type: unspecified Qualified Code(s): I10 - Essential (primary) hypertension Is this a current diagnosis for this admission?: Yes Plan: -Antihypertensive medications resumed - Time Time Spent with patient: 15-24 minutes Anticipated Discharge Disposition: Home, Self Care Anticipated Discharge Timeframe: within 48 hours - Inpatient Certification Based on my medical assessment, after consideration of the patient's comorbidities, presenting symptoms, or acuity I expect that the services needed warrant INPATIENT care.: Yes I certify that my determination is in accordance with my understanding of Medicare's requirements for reasonable and necessary INPATIENT services [42 CFR 412.3e].: Yes Medical Necessity: Need for Pain Control
[2020-04-25] MEDS: INSULIN LISPRO 100 UNIT/ML 3 ML VIAL SUBCUT SCH ×4 (13:07→18:45)
--- NOTE | 2020-04-25 16:23 | Progress Note ---
Provider Note Provider Note: Patient brought his own insulin pump and is able to use it. Okay with him using his insulin pump. All insulin orders inpatient were discontinued.
[2020-04-25] MEDS: AMITRIPTYLINE HCL 25 MG TABLET PO SCH (22:02)
[2020-04-25] MEDS: DILTIAZEM HCL 240 MG CAPSULE.CR PO SCH (22:03)
[2020-04-25] MEDS: (PENDING PHARMACY ID) (Rosuvastatin Calcium [Crestor] 40 MG) PO SCH (22:05)
[2020-04-26] MEDS: PIPERACILLIN SODIUM/TAZOBACTAM 3.375 GM in NORMAL SALINE 100 ML IV SCH ×3 (02:21→15:15)
[2020-04-26 05:09] LABS: HEMATOCRIT 40.8 % (37.9-51.0); HEMOGLOBIN 13.7 g/dL (13.5-17.0); MEAN CORPUSCULAR HEMOGLOBIN 28.4 pg (27.0-33.4); MEAN CORPUSCULAR HGB CONC 33.5 g/dL (32.0-36.0); MEAN CORPUSCULAR VOLUME 85 fl (80-97); PLATELET COUNT 218 10^3/uL (150-450); RED BLOOD COUNT 4.81 10^6/uL (4.35-5.55); RED CELL DISTRIBUTION WIDTH 15.8 % (11.5-14.0)
[2020-04-26 05:27] LABS: ANION GAP 9 (5-19); BLOOD UREA NITROGEN 31 mg/dL (7-20); CALCIUM 8.9 mg/dL (8.4-10.2); CARBON DIOXIDE 26 mmol/L (22-30); CHLORIDE 101 mmol/L (98-107); GLUCOSE 174 mg/dL (75-110); POTASSIUM 3.2 mmol/L (3.6-5.0)
--- NOTE | 2020-04-26 06:59 | PDOC PROGRESS REPORT ---
Subjective Progress Note for:: 04/26/20 Subjective:: Patient was seen and examined at bedside. Denies fever nausea or vomiting, minimal postop pain passing gas. Plan is to discharge him today Reason For Visit: ACUTE GANGRENOUS,NONPERFORATED APPENDICITIS,DM2, Physical Exam Vital Signs: Temp Pulse Resp BP Pulse Ox 98.1 F 56 L 16 143/75 H 96 04/26/20 04:06 04/26/20 04:06 04/26/20 04:06 04/26/20 04:06 04/26/20 04:06 Intake & Output 04/24/20 04/25/20 04/26/20 06:59 06:59 06:59 Intake Total 1000 2360 1400 Output Total 1360 800 Balance 1000 1000 600 Weight 94.4 kg 97.1 kg 94.9 kg General appearance: PRESENT: no acute distress Head exam: PRESENT: atraumatic, normocephalic Eye exam: PRESENT: EOMI, PERRLA Mouth exam: PRESENT: moist Neck exam: PRESENT: full ROM Respiratory exam: PRESENT: clear to auscultation hodan, symmetrical, unlabored Cardiovascular exam: PRESENT: RRR, +S1, +S2 Pulses: PRESENT: normal carotid pulses GI/Abdominal exam: PRESENT: normal bowel sounds, soft, other. ABSENT: guarding, tenderness Rectal exam: PRESENT: deferred Gentrourinary exam: PRESENT: lesions Extremities exam: ABSENT: joint swelling, pedal edema Musculoskeletal exam: PRESENT: full ROM Neurological exam: PRESENT: alert, awake, oriented to person, oriented to place, oriented to time Psychiatric exam: PRESENT: normal mood Results Laboratory Results: 04/26/20 04:44 04/26/20 04:44 04/26/20 04/26/20 04:44 04:44 WBC 6.0 RBC 4.81 Hgb 13.7 Hct 40.8 MCV 85 MCH 28.4 MCHC 33.5 RDW 15.8 H Plt Count 218 Sodium 136.3 L Potassium 3.2 L Chloride 101 Carbon Dioxide 26 Anion Gap 9 BUN 31 H Creatinine 1.46 H Est GFR ( Amer) 59 L Glucose 174 H Calcium 8.9 Magnesium 2.0 Impressions: Abdomen/Pelvis CT 04/23/20 21:32 IMPRESSION: 1. Findings compatible with acute appendicitis. 2. Multiple pulmonary nodules. Most severe: 9.0 mm solid pulmonary nodule detected on incomplete chest CT. Recommend immediate non-contrast Chest CT for further evaluation. These guidelines do not apply to immunocompromised patients and patients with cancer. Follow up in patients with significant comorbidities as clinically warranted. For lung cancer screening, adhere to Lung-RADS guidelines. Reference: Radiology. 2017; 284(1):228-43. 3. Bilateral nonobstructing nephrolithiasis. This exam was performed according to our departmental dose-optimization program, which includes automated exposure control, adjustment of the mA and/or kV according to patient size and/or use of iterative reconstruction technique. Assessment and Plan - Diagnosis (1) Atrial fibrillation/flutter Is this a current diagnosis for this admission?: Yes Plan: -Patient is on dronedarone and Cardizem and rivaroxaban for his A. fib -Resumed Cardizem and dronedarone -rivaroxaban held because he is postop. According to the patient he will restart his anticoagulation on Monday (2) Type 2 diabetes mellitus without obesity Is this a current diagnosis for this admission?: Yes Plan: -Is on insulin pump at home -Patient resumed using his insulin pump he is able to manage it on his own -Point of care glucose will be checked for meals and at bedtime (3) Acute appendicitis Qualifiers: Acute appendicitis type: with localized peritonitis Appendicitis gangrene presence: without gangrene Appendicitis perforation presence: without perforation Appendicitis abscess presence: without abscess Qualified Code(s): K35.30 - Acute appendicitis with localized peritonitis, without perforation or gangrene Is this a current diagnosis for this admission?: Yes Plan: -status post appendectomy with adhesional lysis stop day 2 -Off antibiotics -Diet advanced to general per surgery, tolerating well - ok to discharge internal medicine standpoint. (4) Hypertension Qualifiers: Hypertension type: unspecified Qualified Code(s): I10 - Essential (primary) hypertension Is this a current diagnosis for this admission?: Yes Plan: -Antihypertensive medications resumed - Plan Summary Summary: Plan is to discharge him today. To resume rivaroxaban tomorrow - Time Time Spent with patient: Less than 15 minutes Anticipated Discharge Disposition: Home, Self Care Anticipated Discharge Timeframe: within 24 hours
[2020-04-26] MEDS: ENOXAPARIN SODIUM INJ 40 MG/0.4 ML DISP.SYRIN SUBCUT SCH (09:36)
[2020-04-26] MEDS: DULOXETINE HCL 30 MG CAPSULE.DR PO SCH (09:36)
[2020-04-26] MEDS: DRONEDARONE HYDROCHLORIDE 400 MG TABLET PO SCH (09:36)
[2020-04-26] MEDS: CHLORTHALIDONE 25 MG TABLET PO SCH (09:36)
[2020-04-26] MEDS: LOSARTAN POTASSIUM 50 MG TABLET PO SCH (09:36)
[2020-04-26] MEDS: FAMOTIDINE 20 MG TABLET PO SCH (09:36)
[2020-04-26] MEDS: DILTIAZEM HCL 240 MG CAPSULE.CR PO SCH (09:36)
--- NOTE | 2020-04-26 17:05 | PDOC PROGRESS REPORT ---
Subjective Progress Note for:: 04/26/20 Subjective:: Patient comfortable, no complaints Reason For Visit: ACUTE GANGRENOUS,NONPERFORATED APPENDICITIS,DM2, Physical Exam Vital Signs: Temp Pulse Resp BP Pulse Ox 97.4 F 55 L 16 151/85 H 97 04/26/20 15:40 04/26/20 15:40 04/26/20 15:40 04/26/20 15:40 04/26/20 15:40 Intake & Output 04/25/20 04/26/20 04/27/20 06:59 06:59 06:59 Intake Total 2360 1400 679 Output Total 1360 800 302 Balance 1000 600 377 Weight 97.1 kg 94.9 kg General appearance: PRESENT: no acute distress Respiratory exam: PRESENT: clear to auscultation hodan Cardiovascular exam: PRESENT: RRR GI/Abdominal exam: PRESENT: normal bowel sounds, soft, other - All incisions are clean, dry, and intact, no tenderness Results Laboratory Results: 04/26/20 04:44 04/26/20 04:44 04/26/20 04/26/20 04:44 04:44 WBC 6.0 RBC 4.81 Hgb 13.7 Hct 40.8 MCV 85 MCH 28.4 MCHC 33.5 RDW 15.8 H Plt Count 218 Sodium 136.3 L Potassium 3.2 L Chloride 101 Carbon Dioxide 26 Anion Gap 9 BUN 31 H Creatinine 1.46 H Est GFR ( Amer) 59 L Glucose 174 H Calcium 8.9 Magnesium 2.0 Impressions: Abdomen/Pelvis CT 04/23/20 21:32 IMPRESSION: 1. Findings compatible with acute appendicitis. 2. Multiple pulmonary nodules. Most severe: 9.0 mm solid pulmonary nodule detected on incomplete chest CT. Recommend immediate non-contrast Chest CT for further evaluation. These guidelines do not apply to immunocompromised patients and patients with cancer. Follow up in patients with significant comorbidities as clinically warranted. For lung cancer screening, adhere to Lung-RADS guidelines. Reference: Radiology. 2017; 284(1):228-43. 3. Bilateral nonobstructing nephrolithiasis. This exam was performed according to our departmental dose-optimization program, which includes automated exposure control, adjustment of the mA and/or kV according to patient size and/or use of iterative reconstruction technique. Assessment & Plan - Diagnosis (1) Acute appendicitis Qualifiers: Acute appendicitis type: with localized peritonitis Appendicitis gangrene presence: without gangrene Appendicitis perforation presence: without perforation Appendicitis abscess presence: without abscess Qualified Code(s): K35.30 - Acute appendicitis with localized peritonitis, without perforation or gangrene Is this a current diagnosis for this admission?: Yes - Time Anticipated Discharge Disposition: Home, Self Care Anticipated Discharge Timeframe: today - Plan Summary Plan Summary: Assessment: Postoperative day #2 following laparoscopic appendectomy for acute appendicitis Patient has no complaints Vital signs stable, afebrile Abdomen soft incisions clean White blood cell count normal Plan: Home today Patient can shower immediately, tub baths in 2 weeks Follow-up in the surgery clinic in 2 weeks Follow-up with your primary care physician within 1 to 2 weeks No wound care needed No heavy straining lifting for about 2 weeks then resume all activities as before Resume home medications Tylenol and or naproxen counter as needed for pain
--- NOTE | 2020-04-26 17:10 | PDOC DISCHARGE SUMMARY ---
General - Admit/Disc Date/PCP Admission Date/Primary Care Provider: 04/25/20 16:02 COTY BECERRA MD Discharge Date: 04/26/20 - Discharge Diagnosis Final Diagnosis: Acute gangrenous appendicitis, not perforated - Assessment Summary: The patient is a healthy 64 old male on blood thinners admitted on April 24 the following laparoscopic appendectomy for gangrenous nonperforated appendicitis. The procedure was uneventful, his postop course was unremarkable, his white blood count normalized hospitalization. He was discharged to home on April 26, 2020. On the day of discharge, the patient had no complaints, was tolerating p.o. well, his his exam was unremarkable, his blood pressure count was normal. Plan is to discharge him today. To resume rivaroxaban tomorrow - Additional Information Resuscitation Status: Full Code Discharge Diet: Regular Discharge Activity: Balance Activity w/Rest, No tub bath - For 2 weeks Referrals: COTY BECERRA MD [Primary Care Provider] - Follow up as needed Home Medications: Dronedarone HCl [Multaq] 400 mg PO Q12 05/01/18 Duloxetine HCl [Cymbalta] 90 mg PO DAILY 05/01/18 Losartan Potassium [Cozaar] 100 mg PO DAILY 05/01/18 Rosuvastatin Calcium [Crestor] 40 mg PO QHS 05/01/18 Amitriptyline HCl [Elavil 25 mg Tablet] 25 mg PO QHS 04/24/20 Chlorthalidone [Hygroton 25 mg Tablet] 25 mg PO QAM 04/24/20 Diltiazem HCl [Cardizem Cd 240 mg Capsule.cr] 240 mg PO Q12 04/24/20 Rivaroxaban [Xarelto] 20 mg PO DAILY 04/24/20 Acetaminophen [Tylenol 325 mg Tablet] 325 mg PO Q4HP PRN tablet 04/26/20 Additional Information: Patient can shower immediately, tub baths in 2 weeks Follow-up in the surgery clinic in 2 weeks Follow-up with your primary care physician within 1 to 2 weeks No wound care needed No heavy straining lifting for about 2 weeks then resume all activities as before Resume home medications Tylenol and or naproxen counter as needed for pain Resume oral anticoagulation tomorrow April 27, 2020 History of Present Illiness History of Present Illness: ZAK SOMERS is a 64 year old male Physical Exam Vital Signs: Temp Pulse Resp BP Pulse Ox 97.4 F 55 L 16 151/85 H 97 04/26/20 15:40 04/26/20 15:40 04/26/20 15:40 04/26/20 15:40 04/26/20 15:40 Intake & Output 04/25/20 04/26/20 04/27/20 06:59 06:59 06:59 Intake Total 2360 1400 679 Output Total 1360 800 302 Balance 1000 600 377 Weight 97.1 kg 94.9 kg Results Laboratory Results: WBC 6.0 10^3/uL (4.0-10.5) 04/26/20 04:44 RBC 4.81 10^6/uL (4.35-5.55) 04/26/20 04:44 Hgb 13.7 g/dL (13.5-17.0) 04/26/20 04:44 Hct 40.8 % (37.9-51.0) 04/26/20 04:44 MCV 85 fl (80-97) 04/26/20 04:44 MCH 28.4 pg (27.0-33.4) 04/26/20 04:44 MCHC 33.5 g/dL (32.0-36.0) 04/26/20 04:44 RDW 15.8 % (11.5-14.0) H 04/26/20 04:44 Plt Count 218 10^3/uL (150-450) 04/26/20 04:44 Lymph % (Auto) 6.3 % (13-45) L 04/25/20 04:45 [place] % (Auto) 8.5 % (3-13) 04/25/20 04:45 Eos % (Auto) 0.1 % (0-6) 04/25/20 04:45 Baso % (Auto) 0.3 % (0-2) 04/25/20 04:45 Absolute Neuts (auto) 9.5 10^3/uL (1.7-8.2) H 04/25/20 04:45 Absolute Lymphs (auto) 0.7 10^3/uL (0.5-4.7) 04/25/20 04:45 Absolute Monos (auto) 1.0 10^3/uL (0.1-1.4) 04/25/20 04:45 Absolute Eos (auto) 0.0 10^3/uL (0.0-0.6) 04/25/20 04:45 Absolute Basos (auto) 0.0 10^3/uL (0.0-0.2) 04/25/20 04:45 Total Counted 100 04/23/20 17:39 Seg Neutrophils % 84.8 % (42-78) H 04/25/20 04:45 Seg Neuts % (Manual) 94 % (42-78) H 04/23/20 17:39 Lymphocytes % (Manual) 2 % (13-45) L 04/23/20 17:39 Monocytes % (Manual) 4 % (3-13) 04/23/20 17:39 Eosinophils % (Manual) 0 % (0-6) 04/23/20 17:39 Basophils % (Manual) 0 % (0-2) 04/23/20 17:39 Abs Neuts (Manual) 14.1 10^3/uL (1.7-8.2) H 04/23/20 17:39 Abs Lymphs (Manual) 0.3 10^3/uL (0.5-4.7) L 04/23/20 17:39 Abs Monocytes (Manual) 0.6 10^3/uL (0.1-1.4) 04/23/20 17:39 Absolute Eos (Manual) 0.0 10^3/uL (0.0-0.6) 04/23/20 17:39 Abs Basophils (Manual) 0.0 10^3/uL (0.0-0.2) 04/23/20 17:39 Platelet Comment ADEQUATE 04/23/20 17:39 Anisocytosis SLIGHT 04/23/20 17:39 Sodium 136.3 mmol/L (137-145) L 04/26/20 04:44 Potassium 3.2 mmol/L (3.6-5.0) L 04/26/20 04:44 Chloride 101 mmol/L (98-107) 04/26/20 04:44 Carbon Dioxide 26 mmol/L (22-30) 04/26/20 04:44 Anion Gap 9 (5-19) 04/26/20 04:44 BUN 31 mg/dL (7-20) H 04/26/20 04:44 Creatinine 1.46 mg/dL (0.52-1.25) H 04/26/20 04:44 Est GFR ( Amer) 59 (>60) L 04/26/20 04:44 Est GFR (MDRD) Non-Af 49 (>60) L 04/26/20 04:44 Glucose 174 mg/dL (75-110) H 04/26/20 04:44 POC Glucose 253 mg/dL (70-110) H 04/25/20 02:25 Hemoglobin A1c % 7.9 % (4.7-6.0) H 04/25/20 04:45 Calcium 8.9 mg/dL (8.4-10.2) 04/26/20 04:44 Magnesium 2.0 mg/dL (1.6-2.3) 04/26/20 04:44 Total Bilirubin 0.7 mg/dL (0.2-1.3) 04/25/20 04:45 Direct Bilirubin 0.3 mg/dL (0.0-0.4) 04/25/20 04:45 Neonat Total Bilirubin Not Reportable 04/25/20 04:45 Neonat Direct Bilirubin Not Reportable 04/25/20 04:45 Neonat Indirect Bili Not Reportable 04/25/20 04:45 AST 19 U/L (17-59) 04/25/20 04:45 ALT 15 U/L (<50) 04/25/20 04:45 Alkaline Phosphatase 82 U/L (38-126) 04/25/20 04:45 Total Protein 5.9 g/dL (6.3-8.2) L 04/25/20 04:45 Albumin 3.1 g/dL (3.5-5.0) L 04/25/20 04:45 Triglycerides 89 mg/dL (<150) 04/25/20 04:45 Cholesterol 115.26 mg/dL (0-200) 04/25/20 04:45 LDL Cholesterol Direct 58 mg/dL (<100) 04/25/20 04:45 VLDL Cholesterol 18.0 mg/dL (10-31) 04/25/20 04:45 HDL Cholesterol 42 mg/dL (>40) 04/25/20 04:45 Lipase 27.0 U/L (23-300) 04/23/20 17:39 Urine Color YELLOW 04/24/20 22:30 Urine Appearance CLEAR 04/24/20 22:30 Urine pH 5.0 (5.0-9.0) 04/24/20 22:30 Ur Specific [place] 1.009 04/24/20 22:30 Urine Protein 30 mg/dL (NEGATIVE) H 04/24/20 22:30 Urine Glucose (UA) >=500 mg/dL (NEGATIVE) H 04/24/20 22:30 Urine Ketones TRACE mg/dL (NEGATIVE) H 04/24/20 22:30 Urine Blood NEGATIVE (NEGATIVE) 04/24/20 22:30 Urine Nitrite NEGATIVE (NEGATIVE) 04/24/20 22:30 Urine Bilirubin NEGATIVE (NEGATIVE) 04/24/20 22:30 Urine Urobilinogen NEGATIVE mg/dL (<2.0) 04/24/20 22:30 Ur Leukocyte Esterase NEGATIVE (NEGATIVE) 04/24/20 22:30 Urine WBC (Auto) 0 /HPF 04/24/20 22:30 Urine RBC (Auto) 1 /HPF 04/24/20 22:30 U Hyaline Cast (Auto) 7 /LPF 04/24/20 02:30 Squamous Epi Cells Auto <1 /HPF 04/24/20 02:30 Urine Mucus (Auto) OCC /LPF 04/24/20 02:30 Urine Ascorbic Acid NEGATIVE (NEGATIVE) 04/24/20 22:30 SARS-CoV-2 (PCR) NEGATIVE (NEGATIVE) 04/24/20 02:10 Impressions: Abdomen/Pelvis CT 04/23/20 21:32 IMPRESSION: 1. Findings compatible with acute appendicitis. 2. Multiple pulmonary nodules. Most severe: 9.0 mm solid pulmonary nodule detected on incomplete chest CT. Recommend immediate non-contrast Chest CT for further evaluation. These guidelines do not apply to immunocompromised patients and patients with cancer. Follow up in patients with significant comorbidities as clinically warranted. For lung cancer screening, adhere to Lung-RADS guidelines. Reference: Radiology. 2017; 284(1):228-43. 3. Bilateral nonobstructing nephrolithiasis. This exam was performed according to our departmental dose-optimization program, which includes automated exposure control, adjustment of the mA and/or kV according to patient size and/or use of iterative reconstruction technique.
[2020-04-26 17:13] VITALS: BP 160/62
== END 2020-04-26 17:35 | disposition home or self-care (01) | DRG 343 ==
LOC: ER 18:10 → EH 04-24 00:44 → 5 04-24 05:40 → OBSVTOIN 04-25 16:02
PROVIDERS: ADMIT Surgery; ATTEND Surgery
PROC: 0DTJ4ZZ Resection of Appendix, Percutaneous Endoscopic Approach (ICD-10-PCS; principal; 2020-04-24 07:30)
DX: K35.891 Other acute appendicitis without perforation, with gangrene (principal); E78.5 Hyperlipidemia, unspecified; I10 Essential (primary) hypertension; G47.30 Sleep apnea, unspecified; E11.22 Type 2 diabetes mellitus with diabetic chronic kidney disease; K90.0 Celiac disease; F10.20 Alcohol dependence, uncomplicated; F17.210 Nicotine dependence, cigarettes, uncomplicated; N18.3 Chronic kidney disease, stage 3 (moderate); I25.2 Old myocardial infarction; E78.00 Pure hypercholesterolemia, unspecified; Z96.651 Presence of right artificial knee joint; Z86.73 Personal history of transient ischemic attack (TIA), and cerebral infarction without residual deficits; Z11.59 Encounter for screening for other viral diseases; Z79.02 Long term (current) use of antithrombotics/antiplatelets; Z79.899 Other long term (current) drug therapy; Z79.01 Long term (current) use of anticoagulants; Z96.41 Presence of insulin pump (external) (internal)
CPT/HCPCS: 36415; 74176; 80048; 80053; 80061; 81001; 82962; 83036; 83690; 83735; 840; 85025; 85027; 87070; 87635; 88304; 94799; C9803; G0378; J0694; J1100; J1170; J1650; J1815; J1885; J2001; J2250; J2270; J2370; J2405; J2543; J2704; J2710; J3010; J3490; J7030; J7050; J7120